=== PATIENT | male | born 1970 | race Caucasian/White ===

== ENCOUNTER 2017-12-19 10:31 | Inpatient (IN) ==
[~2017-12-19 10:31] MED LIST: LIDOCAINE 2% 5 ML VIAL ONE; ONDANSETRON 4 MG/2 ML VIAL ONE; PROPOFOL 200 MG/20 ML VIAL IV ONE; SUCCINYLCHOLINE 200 MG/10 ML VIAL ONE
[2017-12-19] MEDS ORDERED: INDOMETHACIN SUPP 50 MG SUPP RECTAL ONE (10:54)
[2017-12-19] MEDS ORDERED: LACTATED RINGERS 1,000 ML IV SCH (11:00)
[2017-12-19] MEDS ORDERED: ONDANSETRON 4 MG/2 ML VIAL IV ONE (12:12)
[2017-12-19] MEDS ORDERED: MEPERIDINE 25 MG/1 ML VIAL IV ONE (12:55)
[2017-12-19] MEDS ORDERED: MEPERIDINE 50 MG/1 ML VIAL ONE (12:59)
[2017-12-19] MEDS ORDERED: MORPHINE 4 MG/1 ML VIAL IV PRN (13:40)
[2017-12-19] MEDS: SODIUM CHLORIDE 0.45% 1,000 ML IV SCH ×2 (14:21→23:10)
[2017-12-19] MEDS ORDERED: cefTRIAXone 1,000 MG in SYRINGE 1 EACH IV SCH (16:00)
[2017-12-19] MEDS ORDERED: NALOXONE 0.4 MG/ML VIAL IV PRN ×2 (16:27→16:33)
[2017-12-19] MEDS ORDERED: MEPERIDINE PCA 300 MG/30 ML SYRINGE IV SCH (16:30)
[2017-12-19] MEDS ORDERED: HYDROmorphone PCA 30 MG/30 ML SYRINGE IV SCH (17:00)
[2017-12-19] MEDS: ONDANSETRON 4 MG/2 ML VIAL IV PRN ×2 (17:10→21:36)
[2017-12-19] MEDS: MEPERIDINE PCA 300 MG/30 ML SYRINGE IV SCH (18:27)
[2017-12-20] MEDS: ONDANSETRON 4 MG/2 ML VIAL IV PRN ×3 (01:36→22:09)
[2017-12-20] MEDS ORDERED: PROMETHAZINE 25 MG/1 ML VIAL IM PRN (03:21)
[2017-12-20] MEDS: SODIUM CHLORIDE 0.45% 1,000 ML IV SCH ×3 (06:01→23:40)
[2017-12-20 06:48] LABS: Basophils % 0.2 % (0.0-0.8); Eosinophils % 0.1 % (0.00-10.9); Hematocrit 50.5 VOL% (42.0-52.0); Hemoglobin 16.8 GM/DL (14.0-18.0); Immature Granulocytes % 0.8 %; Immature Granulocytes Absolute 0.14 #; Lymphocytes # 0.5 10*3/uL (1.4-4.0); Lymphocytes % 2.7 % (21.2-54.2); Mean Corpuscular HGB Conc 33.3 GM/DL (32-36); Mean Corpuscular Hemoglobin 28 PG (27-34); Mean Corpuscular Volume 84.9 FL (87-102); Mean Platelet Volume 8.6 FL (9.6-12.0); Monocytes # 0.5 10*3/uL (0.11-0.8); Monocytes % 2.9 % (1.7-12.7); Neutrophils # 16.6 10*3/uL (1.4-7.4); Neutrophils % 93.3 % (38.7-73.9); Platelet Count 695 T/CUMM (130-400); Red Blood Count 5.95 MC/CUMM (3.8-5.5); Red Cell Distribution Width 13.2 % (9.3-17.3); White Blood Count 17.7 T/CUMM (4-12)
[2017-12-20 07:12] LABS: Band Neutrophils 3 % (0-10); Hypochromasia 1+; Lymphocytes 1 % (20-55); Platelet Estimate Increased; Segmented Neutrophils 93 % (50-85); Total Cells Counted 100
[2017-12-20 07:15] LABS: Albumin 3.3 G/DL (3.4-5.0); Bilirubin,Total 1.3 MG/DL (0.2-1.0); Calcium 9.4 MG/DL (8.5-10.1); Osmolality,Calculated 269.7 MOS/KG (273-304); Potassium 4.6 MMOL/L (3.5-5.1); Total Protein 7.9 G/DL (6.4-8.3)
[2017-12-20] MEDS ORDERED: SODIUM CHLORIDE 0.9% 1,000 ML IV ONE (10:42)
[2017-12-20] MEDS ORDERED: PIPERACILLIN/TAZOBACTAM 3,375 MG in SODIUM CHLORIDE 0.9% 100 ML IV SCH (11:00)
[2017-12-20 14:09] LABS: Basophils % 0.2 % (0.0-0.8); Hematocrit 47.5 VOL% (42.0-52.0); Hemoglobin 16.1 GM/DL (14.0-18.0); Immature Granulocytes % 0.5 %; Immature Granulocytes Absolute 0.09 #; Lymphocytes # 0.8 10*3/uL (1.4-4.0); Lymphocytes % 4.1 % (21.2-54.2); Mean Corpuscular HGB Conc 33.9 GM/DL (32-36); Mean Corpuscular Hemoglobin 29 PG (27-34); Mean Corpuscular Volume 84.7 FL (87-102); Mean Platelet Volume 8.5 FL (9.6-12.0); Monocytes # 0.8 10*3/uL (0.11-0.8); Monocytes % 4.2 % (1.7-12.7); Neutrophils # 17.1 10*3/uL (1.4-7.4); Platelet Count 613 T/CUMM (130-400); Red Blood Count 5.61 MC/CUMM (3.8-5.5); Red Cell Distribution Width 13.2 % (9.3-17.3); White Blood Count 18.8 T/CUMM (4-12)
[2017-12-20 14:34] LABS: Lymphocytes 6 % (20-55); Platelet Estimate Adequate; Segmented Neutrophils 91 % (50-85); Total Cells Counted 100
[2017-12-20] MEDS: MEROPENEM 1,000 MG in SODIUM CHLORIDE 0.9% 100 ML IV SCH (15:09)
[2017-12-20] MEDS ORDERED: GLUCAGON 1 MG VIAL IM PRN (16:07)
[2017-12-20] MEDS ORDERED: DEXTROSE 50% 25 GM/50 ML VIAL IV PRN (16:07)
[2017-12-20] MEDS: INSULIN LISPRO 100 UNIT/ML SUBCUT SCH ×2 (16:16→20:30)
[2017-12-20] MEDS: MEPERIDINE PCA 300 MG/30 ML SYRINGE IV SCH (17:57)
[2017-12-20] MEDS: MEPERIDINE 50 MG/1 ML VIAL IV PRN (22:08)
[2017-12-21] MEDS: MEROPENEM 1,000 MG in SODIUM CHLORIDE 0.9% 100 ML IV SCH ×3 (00:02→14:01)
[2017-12-21] MEDS: ONDANSETRON 4 MG/2 ML VIAL IV PRN ×4 (01:51→17:54)
[2017-12-21] MEDS: MEPERIDINE 50 MG/1 ML VIAL IV PRN ×7 (01:51→20:40)
[2017-12-21 07:23] LABS: Basophils # 0.1 10*3/uL (0.0-0.2); Basophils % 0.2 % (0.0-0.8); Eosinophils % 0.1 % (0.00-10.9); Immature Granulocytes % 0.8 %; Immature Granulocytes Absolute 0.18 #; Lymphocytes # 1.2 10*3/uL (1.4-4.0); Lymphocytes % 5.3 % (21.2-54.2); Mean Corpuscular HGB Conc 34.8 GM/DL (32-36); Mean Corpuscular Hemoglobin 29 PG (27-34); Mean Platelet Volume 8.6 FL (9.6-12.0); Monocytes # 1.5 10*3/uL (0.11-0.8); Monocytes % 6.6 % (1.7-12.7); Platelet Count 494 T/CUMM (130-400); Red Blood Count 4.82 MC/CUMM (3.8-5.5); Red Cell Distribution Width 13.6 % (9.3-17.3); White Blood Count 21.9 T/CUMM (4-12)
[2017-12-21 07:28] LABS: Hemoglobin 13.9 GM/DL (14.0-18.0)
[2017-12-21] MEDS: SODIUM CHLORIDE 0.45% 1,000 ML IV SCH ×2 (07:28→14:04)
[2017-12-21 07:41] LABS: Hypochromasia 1+; Lymphocytes 4 % (20-55); Platelet Estimate Adequate; Segmented Neutrophils 89 % (50-85); Total Cells Counted 100
[2017-12-21] MEDS: INSULIN LISPRO 100 UNIT/ML SUBCUT SCH ×4 (08:15→20:51)
[2017-12-21] MEDS: PANTOPRAZOLE 40 MG VIAL IV SCH ×2 (11:13→20:52)
[2017-12-21] MEDS: METOPROLOL TARTRATE 50 MG TABLET PO SCH ×2 (16:13→20:52)
[2017-12-22] MEDS: SODIUM CHLORIDE 0.45% 1,000 ML IV SCH ×5 (00:36→15:55)
[2017-12-22] MEDS: MEROPENEM 1,000 MG in SODIUM CHLORIDE 0.9% 100 ML IV SCH ×4 (00:37→22:26)
[2017-12-22] MEDS: MEPERIDINE 50 MG/1 ML VIAL IV PRN ×6 (00:37→22:30)
[2017-12-22] MEDS: ONDANSETRON 4 MG/2 ML VIAL IV PRN ×5 (00:38→19:28)
[2017-12-22 07:47] LABS: Basophils # 0.1 10*3/uL (0.0-0.2); Basophils % 0.4 % (0.0-0.8); Eosinophils # 0.2 10*3/uL (0.0-0.87); Eosinophils % 1.2 % (0.00-10.9); Hematocrit 36.9 VOL% (42.0-52.0); Hemoglobin 12.4 GM/DL (14.0-18.0); Immature Granulocytes % 0.7 %; Immature Granulocytes Absolute 0.11 #; Lymphocytes # 0.8 10*3/uL (1.4-4.0); Lymphocytes % 5.1 % (21.2-54.2); Mean Corpuscular HGB Conc 33.6 GM/DL (32-36); Mean Corpuscular Hemoglobin 29 PG (27-34); Mean Corpuscular Volume 86.2 FL (87-102); Mean Platelet Volume 8.9 FL (9.6-12.0); Monocytes # 1.2 10*3/uL (0.11-0.8); Monocytes % 7.7 % (1.7-12.7); Neutrophils # 13.3 10*3/uL (1.4-7.4); Neutrophils % 84.9 % (38.7-73.9); Platelet Count 433 T/CUMM (130-400); Red Blood Count 4.28 MC/CUMM (3.8-5.5); Red Cell Distribution Width 13.8 % (9.3-17.3); White Blood Count 15.6 T/CUMM (4-12)
[2017-12-22 08:20] LABS: Albumin 2.4 G/DL (3.4-5.0); Bilirubin,Total 1.1 MG/DL (0.2-1.0); Calcium 8.3 MG/DL (8.5-10.1); Osmolality,Calculated 265.2 MOS/KG (273-304); Potassium 4.1 MMOL/L (3.5-5.1); Total Protein 6.5 G/DL (6.4-8.3)
[2017-12-22] MEDS: INSULIN LISPRO 100 UNIT/ML SUBCUT SCH ×4 (08:41→21:09)
[2017-12-22] MEDS: METOPROLOL TARTRATE 50 MG TABLET PO SCH ×2 (08:41→21:11)
[2017-12-22] MEDS: PANTOPRAZOLE 40 MG VIAL IV SCH ×2 (08:42→21:11)
[2017-12-22] MEDS: POLYETHYLENE GLYCOL POWDER 17 GM PACK PO SCH (10:39)
[2017-12-23] MEDS: SODIUM CHLORIDE 0.45% 1,000 ML IV SCH ×3 (00:04→23:35)
[2017-12-23] MEDS: MEPERIDINE 50 MG/1 ML VIAL IV PRN ×4 (02:06→20:18)
[2017-12-23] MEDS: ONDANSETRON 4 MG/2 ML VIAL IV PRN ×5 (02:07→20:18)
[2017-12-23] MEDS: MEROPENEM 1,000 MG in SODIUM CHLORIDE 0.9% 100 ML IV SCH ×3 (06:11→23:18)
[2017-12-23] MEDS: PANTOPRAZOLE 40 MG VIAL IV SCH ×2 (08:31→20:19)
[2017-12-23] MEDS: POLYETHYLENE GLYCOL POWDER 17 GM PACK PO SCH ×2 (08:31→08:33)
[2017-12-23] MEDS: INSULIN LISPRO 100 UNIT/ML SUBCUT SCH ×4 (08:31→23:20)
[2017-12-23] MEDS: METOPROLOL TARTRATE 50 MG TABLET PO SCH ×2 (08:31→20:19)
[2017-12-24] MEDS: ONDANSETRON 4 MG/2 ML VIAL IV PRN ×4 (03:54→21:57)
[2017-12-24] MEDS: MEPERIDINE 50 MG/1 ML VIAL IV PRN ×4 (03:58→17:39)
[2017-12-24] MEDS: MEROPENEM 1,000 MG in SODIUM CHLORIDE 0.9% 100 ML IV SCH ×3 (06:55→22:28)
[2017-12-24] MEDS: SODIUM CHLORIDE 0.45% 1,000 ML IV SCH ×4 (07:56→21:52)
[2017-12-24] MEDS: INSULIN LISPRO 100 UNIT/ML SUBCUT SCH ×4 (09:28→22:10)
[2017-12-24] MEDS: METOPROLOL TARTRATE 50 MG TABLET PO SCH ×2 (09:28→21:54)
[2017-12-24] MEDS: POLYETHYLENE GLYCOL POWDER 17 GM PACK PO SCH (09:29)
[2017-12-24] MEDS: PANTOPRAZOLE 40 MG VIAL IV SCH ×2 (09:29→21:54)
[2017-12-25] MEDS: MEPERIDINE 50 MG/1 ML VIAL IV PRN ×3 (00:06→10:51)
[2017-12-25] MEDS: SODIUM CHLORIDE 0.45% 1,000 ML IV SCH ×3 (05:36→20:34)
[2017-12-25] MEDS: ONDANSETRON 4 MG/2 ML VIAL IV PRN ×4 (05:41→20:34)
[2017-12-25 06:24] LABS: Basophils # 0.1 10*3/uL (0.0-0.2); Basophils % 0.4 % (0.0-0.8); Eosinophils # 0.1 10*3/uL (0.0-0.87); Eosinophils % 0.8 % (0.00-10.9); Hematocrit 36.4 VOL% (42.0-52.0); Hemoglobin 12.4 GM/DL (14.0-18.0); Immature Granulocytes % 0.8 %; Immature Granulocytes Absolute 0.11 #; Lymphocytes % 14.3 % (21.2-54.2); Mean Corpuscular HGB Conc 34.1 GM/DL (32-36); Mean Corpuscular Hemoglobin 28 PG (27-34); Mean Corpuscular Volume 83.5 FL (87-102); Mean Platelet Volume 9.1 FL (9.6-12.0); Monocytes # 1.5 10*3/uL (0.11-0.8); Monocytes % 10.6 % (1.7-12.7); Neutrophils # 10.1 10*3/uL (1.4-7.4); Neutrophils % 73.1 % (38.7-73.9); Platelet Count 412 T/CUMM (130-400); Red Blood Count 4.36 MC/CUMM (3.8-5.5); Red Cell Distribution Width 13.5 % (9.3-17.3); White Blood Count 13.8 T/CUMM (4-12)
[2017-12-25 06:28] LABS: Calcium 8.8 MG/DL (8.5-10.1); Osmolality,Calculated 268.1 MOS/KG (273-304); Potassium 3.7 MMOL/L (3.5-5.1)
[2017-12-25] MEDS: MEROPENEM 1,000 MG in SODIUM CHLORIDE 0.9% 100 ML IV SCH ×3 (06:31→23:19)
[2017-12-25] MEDS: INSULIN LISPRO 100 UNIT/ML SUBCUT SCH ×4 (08:44→23:20)
[2017-12-25] MEDS: PANTOPRAZOLE 40 MG VIAL IV SCH ×2 (09:20→20:33)
[2017-12-25] MEDS: POLYETHYLENE GLYCOL POWDER 17 GM PACK PO SCH (09:20)
[2017-12-25] MEDS: METOPROLOL TARTRATE 50 MG TABLET PO SCH ×2 (09:20→20:33)
[2017-12-25] MEDS ORDERED: HYDROmorphone 2 MG/1 ML VIAL IV PRN (14:37)
[2017-12-25] MEDS: ALPRAZolam 0.5 MG TABLET PO PRN ×2 (14:54→23:25)
[2017-12-26 05:21] LABS: Hematocrit 38.3 VOL% (42.0-52.0); Hemoglobin 12.7 GM/DL (14.0-18.0); Mean Corpuscular HGB Conc 33.2 GM/DL (32-36); Mean Corpuscular Hemoglobin 29 PG (27-34); Mean Corpuscular Volume 85.9 FL (87-102); Platelet Count 452 T/CUMM (130-400); Red Blood Count 4.46 MC/CUMM (3.8-5.5); Red Cell Distribution Width 13.5 % (9.3-17.3); White Blood Count 12.7 T/CUMM (4-12)
[2017-12-26 05:22] LABS: Basophils # 0.1 10*3/uL (0.0-0.2); Basophils % 0.5 % (0.0-0.8); Eosinophils # 0.2 10*3/uL (0.0-0.87); Eosinophils % 1.4 % (0.00-10.9); Immature Granulocytes % 1.1 %; Immature Granulocytes Absolute 0.14 #; Lymphocytes # 2.2 10*3/uL (1.4-4.0); Lymphocytes % 17.3 % (21.2-54.2); Monocytes # 1.3 10*3/uL (0.11-0.8); Monocytes % 10.5 % (1.7-12.7); Neutrophils # 8.8 10*3/uL (1.4-7.4); Neutrophils % 69.2 % (38.7-73.9)
[2017-12-26 05:43] LABS: % Iron Saturation 10.9 % (18-50); Albumin 2.6 G/DL (3.4-5.0); Bilirubin,Total 0.9 MG/DL (0.2-1.0); Calcium 8.9 MG/DL (8.5-10.1); Osmolality,Calculated 273.8 MOS/KG (273-304); Potassium 3.9 MMOL/L (3.5-5.1); Total Protein 6.7 G/DL (6.4-8.3)
[2017-12-26] MEDS: MEROPENEM 1,000 MG in SODIUM CHLORIDE 0.9% 100 ML IV SCH ×2 (06:11→15:52)
[2017-12-26] MEDS: SODIUM CHLORIDE 0.45% 1,000 ML IV SCH ×3 (06:11→18:21)
[2017-12-26] MEDS: INSULIN LISPRO 100 UNIT/ML SUBCUT SCH ×4 (08:46→20:54)
[2017-12-26] MEDS: ONDANSETRON 4 MG/2 ML VIAL IV PRN ×2 (08:48→16:22)
[2017-12-26] MEDS: PANTOPRAZOLE 40 MG VIAL IV SCH ×2 (08:49→20:51)
[2017-12-26] MEDS: METOPROLOL TARTRATE 50 MG TABLET PO SCH ×2 (08:49→20:52)
[2017-12-26] MEDS: ALPRAZolam 0.5 MG TABLET PO PRN ×2 (11:55→23:59)
[2017-12-26] MEDS: POLYETHYLENE GLYCOL POWDER 17 GM PACK PO SCH (14:08)
[2017-12-26] MEDS: FERROUS SULFATE 325 MG TABLET PO SCH ×3 (14:13→20:51)
[2017-12-27] MEDS: MEROPENEM 1,000 MG in SODIUM CHLORIDE 0.9% 100 ML IV SCH ×2 (00:32→06:30)
[2017-12-27] MEDS: SODIUM CHLORIDE 0.45% 1,000 ML IV SCH ×2 (06:30→15:22)
[2017-12-27] MEDS: INSULIN LISPRO 100 UNIT/ML SUBCUT SCH ×2 (09:13→13:17)
[2017-12-27] MEDS: FERROUS SULFATE 325 MG TABLET PO SCH (09:20)
[2017-12-27] MEDS: POLYETHYLENE GLYCOL POWDER 17 GM PACK PO SCH (09:20)
[2017-12-27] MEDS: PANTOPRAZOLE 40 MG VIAL IV SCH (09:20)
[2017-12-27] MEDS: METOPROLOL TARTRATE 50 MG TABLET PO SCH (09:20)
[2017-12-27] MEDS: ONDANSETRON 4 MG/2 ML VIAL IV PRN (09:20)
[2017-12-27 13:19] VITALS: BP 110/74
== END 2017-12-27 15:33 | disposition home or self-care (01) | DRG 871 ==
LOC: N.5E 10:31 → N.GILAB 10:31
PROVIDERS: ADMIT Internal Medicine Gastroenterology; ATTEND Internal Medicine Gastroenterology

== ENCOUNTER 2017-12-30 22:35 | Inpatient (IN) ==
[2017-12-30] MEDS ORDERED: ONDANSETRON 4 MG/2 ML VIAL IV STA (23:12)
[2017-12-31 00:06] LABS: Basophils # 0.1 10*3/uL (0.0-0.2); Basophils % 0.6 % (0.0-0.8); Eosinophils # 0.2 10*3/uL (0.0-0.87); Eosinophils % 1.4 % (0.00-10.9); Hematocrit 42.5 VOL% (42.0-52.0); Hemoglobin 14.3 GM/DL (14.0-18.0); Immature Granulocytes % 0.7 %; Immature Granulocytes Absolute 0.09 #; Lymphocytes # 3.9 10*3/uL (1.4-4.0); Lymphocytes % 29.1 % (21.2-54.2); Mean Corpuscular HGB Conc 33.6 GM/DL (32-36); Mean Corpuscular Hemoglobin 28 PG (27-34); Mean Corpuscular Volume 84.5 FL (87-102); Mean Platelet Volume 8.6 FL (9.6-12.0); Monocytes # 1.1 10*3/uL (0.11-0.8); Monocytes % 7.8 % (1.7-12.7); Neutrophils # 8.1 10*3/uL (1.4-7.4); Neutrophils % 60.4 % (38.7-73.9); Platelet Count 544 T/CUMM (130-400); Red Blood Count 5.03 MC/CUMM (3.8-5.5); Red Cell Distribution Width 13.8 % (9.3-17.3); White Blood Count 13.4 T/CUMM (4-12)
[2017-12-31 00:16] LABS: PT Patient Result 10.4 SECS; Partial Thromboplastin Time 31.3 SECS (0-40)
[2017-12-31 00:22] LABS: Lactic Acid 1.6 MMOL/L (0.4-2.0)
[2017-12-31 00:24] LABS: Alanine Aminotransferase 30 U/L (16-61); Albumin 3.6 G/DL (3.4-5.0); Alkaline Phosphatase 138 U/L (45-117); Amylase 59 U/L (25-115); Aspartate Amino Transferase 30 U/L (0-37); Blood Urea Nitrogen 11 MG/DL (7-18); Calcium 10.2 MG/DL (8.5-10.1); Glucose 184 MG/DL (74-106); Osmolality,Calculated 269.4 MOS/KG (273-304); Potassium 3.8 MMOL/L (3.5-5.1); Sodium 133 MMOL/L (136-145); Total Protein 8.2 G/DL (6.4-8.3); Troponin I < 0.015 NG/ML (0.00-0.045)
[2017-12-31] MEDS ORDERED: cefTRIAXone 1,000 MG in SODIUM CHLORIDE 0.9% 100 ML IV STA (00:53)
[2017-12-31] MEDS ORDERED: metroNIDAZOLE INJ 500 MG in PREMIX 1 EACH IV STA (00:53)
[2017-12-31] MEDS ORDERED: SODIUM CHLORIDE 0.9% 1,000 ML IV STA (01:48)
[2017-12-31] MEDS ORDERED: MORPHINE 4 MG/1 ML VIAL ONE (01:51)
[2017-12-31] MEDS ORDERED: cefTRIAXone 1,000 MG VIAL ONE (01:52)
[2017-12-31] MEDS ORDERED: ONDANSETRON 4 MG/2 ML VIAL IV STA (02:20)
[2017-12-31] MEDS ORDERED: MORPHINE 4 MG/1 ML VIAL IV STA (02:20)
[2017-12-31] MEDS ORDERED: ACETAMINOPHEN 325 MG TABLET PO PRN (04:02)
[2017-12-31] MEDS ORDERED: MORPHINE 4 MG/1 ML VIAL IV PRN (04:02)
[2017-12-31] MEDS ORDERED: DEXTROSE 5% NACL 0.45% 1,000 ML IV SCH (04:30)
[2017-12-31] MEDS ORDERED: GLUCAGON 1 MG VIAL IM PRN (05:29)
[2017-12-31] MEDS ORDERED: DEXTROSE 50% 25 GM/50 ML VIAL IV PRN (05:29)
[2017-12-31] MEDS: SODIUM CHLORIDE 0.9% 1,000 ML IV SCH ×3 (05:49→20:08)
[2017-12-31] MEDS: MORPHINE 4 MG/1 ML VIAL IV PRN ×2 (05:56→09:07)
[2017-12-31] MEDS: ONDANSETRON 4 MG/2 ML VIAL IV PRN ×4 (06:08→21:43)
[2017-12-31] MEDS: CIPROFLOXACIN INJ 400 MG in PREMIX 1 EACH IV SCH ×2 (06:11→17:54)
[2017-12-31] MEDS: INSULIN LISPRO 100 UNIT/ML SUBCUT SCH ×3 (07:58→18:32)
[2017-12-31] MEDS: metroNIDAZOLE 500 MG TABLET PO SCH ×3 (10:15→21:37)
[2017-12-31] MEDS: PANTOPRAZOLE 40 MG TABLET PO SCH (10:15)
[2017-12-31] MEDS: CIPROFLOXACIN 500 MG TABLET PO SCH ×2 (10:15→21:37)
[2017-12-31] MEDS: metroNIDAZOLE INJ 500 MG in PREMIX 1 EACH IV SCH ×2 (10:48→21:37)
[2017-12-31] MEDS: HYDROmorphone 2 MG/1 ML VIAL IV PRN ×2 (11:23→18:15)
[2017-12-31] MEDS: ENOXAPARIN 40 MG/0.4 ML SYRINGE SUBCUT SCH (11:25)
[2017-12-31] MEDS ORDERED: POLYETHYLENE GLYCOL POWDER 17 GM PACK PO PRN (13:45)
[2018-01-01] MEDS: INSULIN LISPRO 100 UNIT/ML SUBCUT SCH ×5 (00:30→23:35)
[2018-01-01] MEDS: SODIUM CHLORIDE 0.9% 1,000 ML IV SCH ×4 (03:29→21:15)
[2018-01-01] MEDS: HYDROmorphone 2 MG/1 ML VIAL IV PRN ×3 (03:29→20:49)
[2018-01-01] MEDS: ONDANSETRON 4 MG/2 ML VIAL IV PRN ×4 (03:37→20:46)
[2018-01-01] MEDS: metroNIDAZOLE INJ 500 MG in PREMIX 1 EACH IV SCH (03:40)
[2018-01-01 05:59] LABS: Basophils # 0.1 10*3/uL (0.0-0.2); Basophils % 0.6 % (0.0-0.8); Eosinophils # 0.3 10*3/uL (0.0-0.87); Eosinophils % 2.5 % (0.00-10.9); Hematocrit 38.7 VOL% (42.0-52.0); Hemoglobin 13.1 GM/DL (14.0-18.0); Immature Granulocytes % 0.6 %; Immature Granulocytes Absolute 0.07 #; Lymphocytes # 2.7 10*3/uL (1.4-4.0); Lymphocytes % 23.8 % (21.2-54.2); Mean Corpuscular HGB Conc 33.9 GM/DL (32-36); Mean Corpuscular Hemoglobin 28 PG (27-34); Mean Corpuscular Volume 83.8 FL (87-102); Mean Platelet Volume 8.9 FL (9.6-12.0); Monocytes # 0.9 10*3/uL (0.11-0.8); Monocytes % 8.1 % (1.7-12.7); Neutrophils # 7.2 10*3/uL (1.4-7.4); Neutrophils % 64.4 % (38.7-73.9); Platelet Count 479 T/CUMM (130-400); Red Blood Count 4.62 MC/CUMM (3.8-5.5); Red Cell Distribution Width 14.1 % (9.3-17.3); White Blood Count 11.1 T/CUMM (4-12)
[2018-01-01] MEDS: CIPROFLOXACIN INJ 400 MG in PREMIX 1 EACH IV SCH (06:37)
[2018-01-01 06:52] LABS: Albumin 3.2 G/DL (3.4-5.0); Bilirubin,Total 0.4 MG/DL (0.2-1.0); Calcium 9.2 MG/DL (8.5-10.1); Potassium 4.2 MMOL/L (3.5-5.1); Risk Ratio 3.18; Total Protein 7.4 G/DL (6.4-8.3); VLDL CHOLESTEROL 25.8 MG/DL
[2018-01-01] MEDS: CIPROFLOXACIN 500 MG TABLET PO SCH ×2 (09:18→21:30)
[2018-01-01] MEDS: PANTOPRAZOLE 40 MG TABLET PO SCH (09:18)
[2018-01-01] MEDS: ENOXAPARIN 40 MG/0.4 ML SYRINGE SUBCUT SCH (09:19)
[2018-01-01] MEDS: metroNIDAZOLE 500 MG TABLET PO SCH ×3 (09:31→21:31)
[2018-01-02] MEDS: SODIUM CHLORIDE 0.9% 1,000 ML IV SCH ×3 (05:24→20:49)
[2018-01-02] MEDS: INSULIN LISPRO 100 UNIT/ML SUBCUT SCH ×3 (06:31→18:54)
[2018-01-02] MEDS: ONDANSETRON 4 MG/2 ML VIAL IV PRN ×4 (08:40→22:26)
[2018-01-02] MEDS: CIPROFLOXACIN 500 MG TABLET PO SCH (08:43)
[2018-01-02] MEDS: metroNIDAZOLE 500 MG TABLET PO SCH (08:43)
[2018-01-02] MEDS: ENOXAPARIN 40 MG/0.4 ML SYRINGE SUBCUT SCH (08:43)
[2018-01-02] MEDS: PANTOPRAZOLE 40 MG TABLET PO SCH (08:43)
[2018-01-02] MEDS: metroNIDAZOLE INJ 500 MG in PREMIX 1 EACH IV SCH ×2 (12:06→20:44)
[2018-01-02] MEDS: HYDROmorphone 2 MG/1 ML VIAL IV PRN ×2 (12:07→17:48)
[2018-01-02] MEDS: CIPROFLOXACIN INJ 400 MG in PREMIX 1 EACH IV SCH (13:38)
[2018-01-03] MEDS: INSULIN LISPRO 100 UNIT/ML SUBCUT SCH ×3 (00:37→11:21)
[2018-01-03] MEDS: CIPROFLOXACIN INJ 400 MG in PREMIX 1 EACH IV SCH (01:56)
[2018-01-03] MEDS ORDERED: HYDROmorphone 2 MG/1 ML VIAL IV PRN (02:01)
[2018-01-03] MEDS: SODIUM CHLORIDE 0.9% 1,000 ML IV SCH ×2 (04:16→12:38)
[2018-01-03] MEDS: metroNIDAZOLE INJ 500 MG in PREMIX 1 EACH IV SCH ×2 (04:55→11:15)
[2018-01-03] MEDS: ONDANSETRON 4 MG/2 ML VIAL IV PRN ×2 (08:45→12:42)
[2018-01-03] MEDS: ENOXAPARIN 40 MG/0.4 ML SYRINGE SUBCUT SCH (09:20)
[2018-01-03] MEDS: PANTOPRAZOLE 40 MG TABLET PO SCH (09:20)
[2018-01-03 09:41] LABS: Basophils # 0.1 10*3/uL (0.0-0.2); Basophils % 0.7 % (0.0-0.8); Eosinophils # 0.3 10*3/uL (0.0-0.87); Eosinophils % 2.9 % (0.00-10.9); Hematocrit 37.3 VOL% (42.0-52.0); Hemoglobin 12.4 GM/DL (14.0-18.0); Immature Granulocytes % 0.6 %; Immature Granulocytes Absolute 0.05 #; Lymphocytes # 1.9 10*3/uL (1.4-4.0); Mean Corpuscular HGB Conc 33.2 GM/DL (32-36); Mean Corpuscular Hemoglobin 28 PG (27-34); Mean Corpuscular Volume 83.6 FL (87-102); Mean Platelet Volume 8.9 FL (9.6-12.0); Monocytes # 0.7 10*3/uL (0.11-0.8); Monocytes % 7.6 % (1.7-12.7); Neutrophils # 5.8 10*3/uL (1.4-7.4); Neutrophils % 66.2 % (38.7-73.9); Platelet Count 433 T/CUMM (130-400); Red Blood Count 4.46 MC/CUMM (3.8-5.5); Red Cell Distribution Width 13.9 % (9.3-17.3); White Blood Count 8.8 T/CUMM (4-12)
[2018-01-03 10:12] LABS: Bilirubin,Direct 0.2 MG/DL (0.0-0.20); Bilirubin,Indirect 0.3 MG/DL (0.0-1.0); Bilirubin,Total 0.5 MG/DL (0.2-1.0); Total Protein 6.8 G/DL (6.4-8.3)
[2018-01-03 13:02] VITALS: BP 141/82
== END 2018-01-03 14:03 | disposition home or self-care (01) | DRG 439 ==
LOC: EDBD → EDUNIT# → N.ED 22:35 → N.EDINP 22:35 → SUATTDRO 12-31 03:58 → N.3E 12-31 05:22 → SUATTDRO 01-02 14:03
PROVIDERS: ADMIT Hospitalist; ATTEND Internal Medicine

== ENCOUNTER 2018-02-15 06:50 | Observation (INO) ==
[2018-02-15] MEDS: LACTATED RINGERS 1,000 ML IV SCH (07:20)
[2018-02-15] MEDS ORDERED: INDOMETHACIN SUPP 50 MG SUPP RECTAL ONE (07:26)
[2018-02-15] MEDS ORDERED: DIAZEPAM 5 MG TABLET PO ONE (07:37)
[2018-02-15] MEDS ORDERED: FAMOTIDINE 20 MG TABLET PO ONE (07:38)
[2018-02-15 07:40] LABS: Basophils # 0.1 10*3/uL (0.0-0.2); Basophils % 0.8 % (0.0-0.8); Eosinophils # 0.2 10*3/uL (0.0-0.87); Eosinophils % 2.3 % (0.00-10.9); Hematocrit 40.4 VOL% (42.0-52.0); Hemoglobin 13.2 GM/DL (14.0-18.0); Immature Granulocytes % 0.5 %; Immature Granulocytes Absolute 0.05 #; Lymphocytes # 2.5 10*3/uL (1.4-4.0); Mean Corpuscular HGB Conc 32.7 GM/DL (32-36); Mean Corpuscular Hemoglobin 29 PG (27-34); Mean Corpuscular Volume 87.4 FL (87-102); Monocytes # 0.9 10*3/uL (0.11-0.8); Neutrophils # 6.3 10*3/uL (1.4-7.4); Neutrophils % 62.4 % (38.7-73.9); Platelet Count 381 T/CUMM (130-400); Red Blood Count 4.62 MC/CUMM (3.8-5.5); Red Cell Distribution Width 15.5 % (9.3-17.3)
[2018-02-15 07:50] LABS: PT Patient Result 10.3 SECS
[2018-02-15] MEDS ORDERED: ROCURONIUM 100 MG/10 ML VIAL IV ONE (09:00)
[2018-02-15] MEDS ORDERED: PROPOFOL 200 MG/20 ML VIAL IV ONE (09:00)
[2018-02-15] MEDS ORDERED: SUCCINYLCHOLINE 200 MG/10 ML VIAL ONE (09:00)
[2018-02-15] MEDS ORDERED: ONDANSETRON 4 MG/2 ML VIAL ONE (09:00)
[2018-02-15] MEDS ORDERED: LIDOCAINE 100 MG/5 ML SYRINGE ONE (09:00)
[2018-02-15] MEDS ORDERED: MIDAZOLAM 2 MG/2 ML VIAL ONE (09:05)
[2018-02-15] MEDS ORDERED: fentaNYL 100 MCG/2 ML VIAL ONE (09:05)
[2018-02-15] MEDS ORDERED: ONDANSETRON 4 MG/2 ML VIAL IV PRN (11:31)
[2018-02-15] MEDS ORDERED: DIAZEPAM 5 MG TABLET PO PRN (11:40)
[2018-02-15] MEDS ORDERED: DEXTROSE 50% 25 GM/50 ML VIAL IV PRN (11:45)
[2018-02-15] MEDS ORDERED: GLUCAGON 1 MG VIAL IM PRN (11:45)
[2018-02-15] MEDS ORDERED: SEVOFLURANE 1 UNIT/15 MINUTE INH ONE (14:07)
[2018-02-15] MEDS: busPIRone 15 MG TABLET PO SCH ×2 (15:01→21:16)
[2018-02-15] MEDS: SODIUM CHLORIDE 0.9% 1,000 ML IV SCH (15:01)
[2018-02-15] MEDS: ONDANSETRON 4 MG TABLET PO SCH ×2 (15:09→17:09)
[2018-02-16] MEDS: ONDANSETRON 4 MG TABLET PO SCH ×4 (00:04→18:40)
[2018-02-16] MEDS: SODIUM CHLORIDE 0.9% 1,000 ML IV SCH ×2 (02:51→15:45)
[2018-02-16] MEDS: POLYETHYLENE GLYCOL POWDER 17 GM PACK PO SCH (08:54)
[2018-02-16] MEDS: LISINOPRIL/HCTZ 20-25 MG TABLET PO SCH (08:54)
[2018-02-16] MEDS: busPIRone 15 MG TABLET PO SCH ×3 (08:54→21:16)
[2018-02-16] MEDS: LACTATED RINGERS 1,000 ML IV SCH (09:25)
[2018-02-17] MEDS: ONDANSETRON 4 MG TABLET PO SCH ×4 (01:01→19:30)
[2018-02-17] MEDS: traMADol 50 MG TABLET PO PRN ×3 (03:54→21:36)
[2018-02-17] MEDS: SODIUM CHLORIDE 0.9% 1,000 ML IV SCH ×2 (05:09→20:15)
[2018-02-17 05:23] LABS: Basophils % 0.6 % (0.0-0.8); Eosinophils # 0.2 10*3/uL (0.0-0.87); Eosinophils % 2.9 % (0.00-10.9); Hematocrit 42.3 VOL% (42.0-52.0); Hemoglobin 13.3 GM/DL (14.0-18.0); Immature Granulocytes % 0.3 %; Immature Granulocytes Absolute 0.02 #; Lymphocytes # 2.2 10*3/uL (1.4-4.0); Mean Corpuscular HGB Conc 31.4 GM/DL (32-36); Mean Corpuscular Hemoglobin 27 PG (27-34); Mean Corpuscular Volume 87.2 FL (87-102); Mean Platelet Volume 9.3 FL (9.6-12.0); Monocytes # 0.5 10*3/uL (0.11-0.8); Monocytes % 7.8 % (1.7-12.7); Neutrophils # 3.7 10*3/uL (1.4-7.4); Neutrophils % 55.4 % (38.7-73.9); Platelet Count 396 T/CUMM (130-400); Red Blood Count 4.85 MC/CUMM (3.8-5.5); Red Cell Distribution Width 14.9 % (9.3-17.3); White Blood Count 6.6 T/CUMM (4-12)
[2018-02-17 05:46] LABS: Albumin 3.6 G/DL (3.4-5.0); Bilirubin,Total 0.6 MG/DL (0.2-1.0); Osmolality,Calculated 278.3 MOS/KG (273-304); Potassium 3.8 MMOL/L (3.5-5.1); Total Protein 7.5 G/DL (6.4-8.3)
[2018-02-17] MEDS: POLYETHYLENE GLYCOL POWDER 17 GM PACK PO SCH (08:57)
[2018-02-17] MEDS: busPIRone 15 MG TABLET PO SCH ×3 (08:57→21:12)
[2018-02-17] MEDS: LISINOPRIL/HCTZ 20-25 MG TABLET PO SCH (09:02)
[2018-02-17] MEDS: LACTATED RINGERS 1,000 ML IV SCH (20:12)
[2018-02-17] MEDS: ONDANSETRON 4 MG/2 ML VIAL IV PRN (21:12)
[2018-02-18] MEDS: ONDANSETRON 4 MG TABLET PO SCH ×5 (00:40→18:11)
[2018-02-18] MEDS: SODIUM CHLORIDE 0.9% 1,000 ML IV SCH ×2 (07:40→21:00)
[2018-02-18] MEDS: busPIRone 15 MG TABLET PO SCH ×3 (08:13→20:19)
[2018-02-18] MEDS: LISINOPRIL/HCTZ 20-25 MG TABLET PO SCH (08:13)
[2018-02-18] MEDS: POLYETHYLENE GLYCOL POWDER 17 GM PACK PO SCH (08:13)
[2018-02-18] MEDS: traMADol 50 MG TABLET PO PRN ×2 (11:39→20:19)
[2018-02-18] MEDS: ONDANSETRON 4 MG/2 ML VIAL IV PRN (20:19)
[2018-02-19] MEDS: ONDANSETRON 4 MG TABLET PO SCH ×3 (00:49→11:39)
[2018-02-19] MEDS: LISINOPRIL/HCTZ 20-25 MG TABLET PO SCH (09:23)
[2018-02-19] MEDS: busPIRone 15 MG TABLET PO SCH (09:24)
[2018-02-19] MEDS: POLYETHYLENE GLYCOL POWDER 17 GM PACK PO SCH (09:24)
[2018-02-19] MEDS: SODIUM CHLORIDE 0.9% 1,000 ML IV SCH ×2 (09:32→11:03)
[2018-02-19 11:37] VITALS: BP 143/97
[2018-02-19] MEDS: traMADol 50 MG TABLET PO PRN (11:39)
== END 2018-02-19 14:15 | disposition home or self-care (01) ==
LOC: N.5E 06:50 → N.GILAB 06:50 → N.5E 11:31
PROVIDERS: ADMIT Internal Medicine Gastroenterology; ATTEND Internal Medicine Gastroenterology

== ENCOUNTER 2018-02-28 12:41 | Observation (INO) ==
[2018-02-28] MEDS ORDERED: SODIUM CHLORIDE 0.9% 1,000 ML IV STA (13:40)
[2018-02-28] MEDS ORDERED: HYDROmorphone 2 MG/1 ML VIAL IV STA (13:40)
[2018-02-28] MEDS ORDERED: ONDANSETRON 4 MG/2 ML VIAL IV STA (13:40)
[2018-02-28] MEDS ORDERED: HYDROmorphone 2 MG/1 ML VIAL ONE (13:41)
[2018-02-28] MEDS ORDERED: ONDANSETRON 4 MG/2 ML VIAL ONE (13:41)
[2018-02-28 13:47] LABS: Basophils # 0.1 10*3/uL (0.0-0.2); Basophils % 0.6 % (0.0-0.8); Eosinophils # 0.2 10*3/uL (0.0-0.87); Eosinophils % 2.2 % (0.00-10.9); Hematocrit 46.1 VOL% (42.0-52.0); Hemoglobin 15.1 GM/DL (14.0-18.0); Immature Granulocytes % 0.2 %; Immature Granulocytes Absolute 0.02 #; Lymphocytes # 2.8 10*3/uL (1.4-4.0); Lymphocytes % 34.1 % (21.2-54.2); Mean Corpuscular HGB Conc 32.8 GM/DL (32-36); Mean Corpuscular Hemoglobin 27 PG (27-34); Mean Corpuscular Volume 83.7 FL (87-102); Monocytes # 0.7 10*3/uL (0.11-0.8); Monocytes % 8.1 % (1.7-12.7); Neutrophils # 4.5 10*3/uL (1.4-7.4); Neutrophils % 54.8 % (38.7-73.9); Platelet Count 339 T/CUMM (130-400); Red Blood Count 5.51 MC/CUMM (3.8-5.5); Red Cell Distribution Width 14.9 % (9.3-17.3); White Blood Count 8.1 T/CUMM (4-12)
[2018-02-28 14:06] LABS: Albumin 3.9 G/DL (3.4-5.0); Bilirubin,Total 0.6 MG/DL (0.2-1.0); Osmolality,Calculated 270.1 MOS/KG (273-304); Potassium 3.9 MMOL/L (3.5-5.1); Total Protein 7.8 G/DL (6.4-8.3)
[2018-02-28] MEDS ORDERED: ACETAMINOPHEN 325 MG TABLET PO PRN (16:30)
[2018-02-28] MEDS ORDERED: traMADol 50 MG TABLET PO PRN (16:40)
[2018-02-28] MEDS ORDERED: DIAZEPAM 5 MG TABLET PO PRN (16:40)
[2018-02-28] MEDS ORDERED: POLYETHYLENE GLYCOL POWDER 17 GM PACK PO PRN (16:40)
[2018-02-28] MEDS ORDERED: GLUCAGON 1 MG VIAL IM PRN (16:41)
[2018-02-28] MEDS ORDERED: DEXTROSE 50% 25 GM/50 ML VIAL IV PRN (16:41)
[2018-02-28] MEDS: HYDROmorphone 2 MG/1 ML VIAL IV PRN (18:41)
[2018-02-28] MEDS: SODIUM CHLORIDE 0.9% 1,000 ML IV SCH (19:09)
[2018-02-28] MEDS: busPIRone 15 MG TABLET PO SCH (22:07)
[2018-02-28] MEDS: metFORMIN 500 MG TABLET PO SCH (22:07)
[2018-02-28] MEDS: INSULIN LISPRO 100 UNIT/ML SUBCUT SCH (22:24)
[2018-02-28] MEDS: ONDANSETRON 4 MG/2 ML VIAL IV PRN (22:28)
[2018-03-01] MEDS: HYDROmorphone 2 MG/1 ML VIAL IV PRN ×3 (00:06→21:27)
[2018-03-01] MEDS: SODIUM CHLORIDE 0.9% 1,000 ML IV SCH ×3 (03:50→21:18)
[2018-03-01 04:52] LABS: Basophils % 0.6 % (0.0-0.8); Eosinophils # 0.2 10*3/uL (0.0-0.87); Eosinophils % 3.2 % (0.00-10.9); Hematocrit 40.6 VOL% (42.0-52.0); Hemoglobin 13.3 GM/DL (14.0-18.0); Immature Granulocytes % 0.3 %; Immature Granulocytes Absolute 0.02 #; Lymphocytes # 2.6 10*3/uL (1.4-4.0); Lymphocytes % 40.2 % (21.2-54.2); Mean Corpuscular HGB Conc 32.8 GM/DL (32-36); Mean Corpuscular Hemoglobin 28 PG (27-34); Mean Platelet Volume 9.7 FL (9.6-12.0); Monocytes # 0.6 10*3/uL (0.11-0.8); Monocytes % 9.4 % (1.7-12.7); Neutrophils % 46.3 % (38.7-73.9); Platelet Count 269 T/CUMM (130-400); Red Blood Count 4.72 MC/CUMM (3.8-5.5); Red Cell Distribution Width 14.9 % (9.3-17.3); White Blood Count 6.5 T/CUMM (4-12)
[2018-03-01 05:16] LABS: Calcium 8.6 MG/DL (8.5-10.1); Osmolality,Calculated 276.4 MOS/KG (273-304); Potassium 4.4 MMOL/L (3.5-5.1); Risk Ratio 5.3; VLDL CHOLESTEROL 28.6 MG/DL
[2018-03-01] MEDS: INSULIN LISPRO 100 UNIT/ML SUBCUT SCH ×4 (07:20→21:32)
[2018-03-01] MEDS: LISINOPRIL/HCTZ 20-25 MG TABLET PO SCH (08:55)
[2018-03-01] MEDS: busPIRone 15 MG TABLET PO SCH ×3 (08:55→21:15)
[2018-03-01] MEDS: PANTOPRAZOLE 40 MG TABLET PO SCH (08:55)
[2018-03-01] MEDS: metFORMIN 500 MG TABLET PO SCH ×3 (08:55→21:14)
[2018-03-01] MEDS: ONDANSETRON 4 MG/2 ML VIAL IV PRN ×2 (09:13→21:30)
[2018-03-01] MEDS: IBUPROFEN 600 MG TABLET PO SCH ×2 (16:46→21:14)
[2018-03-02] MEDS: SODIUM CHLORIDE 0.9% 1,000 ML IV SCH (05:37)
[2018-03-02 06:25] LABS: Calcium 8.4 MG/DL (8.5-10.1); Potassium 4.1 MMOL/L (3.5-5.1)
[2018-03-02 06:29] LABS: Basophils % 0.6 % (0.0-0.8); Eosinophils # 0.2 10*3/uL (0.0-0.87); Eosinophils % 4.5 % (0.00-10.9); Hematocrit 39.2 VOL% (42.0-52.0); Hemoglobin 12.6 GM/DL (14.0-18.0); Immature Granulocytes % 0.2 %; Immature Granulocytes Absolute 0.01 #; Lymphocytes % 39.1 % (21.2-54.2); Mean Corpuscular HGB Conc 32.1 GM/DL (32-36); Mean Corpuscular Hemoglobin 28 PG (27-34); Mean Corpuscular Volume 85.6 FL (87-102); Mean Platelet Volume 9.9 FL (9.6-12.0); Monocytes # 0.5 10*3/uL (0.11-0.8); Neutrophils # 2.4 10*3/uL (1.4-7.4); Neutrophils % 46.6 % (38.7-73.9); Platelet Count 269 T/CUMM (130-400); Red Blood Count 4.58 MC/CUMM (3.8-5.5); Red Cell Distribution Width 14.8 % (9.3-17.3); White Blood Count 5.1 T/CUMM (4-12)
[2018-03-02] MEDS: INSULIN LISPRO 100 UNIT/ML SUBCUT SCH (08:12)
[2018-03-02 08:14] VITALS: BP 125/87
[2018-03-02] MEDS: metFORMIN 500 MG TABLET PO SCH (08:50)
[2018-03-02] MEDS: busPIRone 15 MG TABLET PO SCH (08:50)
[2018-03-02] MEDS: PANTOPRAZOLE 40 MG TABLET PO SCH (08:50)
[2018-03-02] MEDS: LISINOPRIL/HCTZ 20-25 MG TABLET PO SCH (08:51)
[2018-03-02] MEDS: IBUPROFEN 600 MG TABLET PO SCH (08:51)
[2018-03-02] MEDS: ONDANSETRON 4 MG/2 ML VIAL IV PRN (10:20)
== END 2018-03-02 11:33 | disposition home or self-care (01) ==
LOC: EDBD → EDUNIT# → N.EDINP 12:41 → N.ED 12:41 → N.2E 19:15
PROVIDERS: ADMIT Internal Medicine Infectious Disease; ATTEND Internal Medicine Infectious Disease

== ENCOUNTER 2018-03-26 15:30 | Inpatient (IN) ==
[2018-03-26] MEDS ORDERED: SODIUM CHLORIDE 0.9% 1,000 ML IV STA (16:54)
[2018-03-26] MEDS ORDERED: ONDANSETRON 4 MG/2 ML VIAL IV STA (16:54)
[2018-03-26] MEDS ORDERED: HYDROmorphone 2 MG/1 ML VIAL IV STA (16:54)
[2018-03-26] MEDS ORDERED: PANTOPRAZOLE 40 MG VIAL IV STA (16:54)
[2018-03-26 17:50] LABS: Basophils # 0.1 10*3/uL (0.0-0.2); Basophils % 0.6 % (0.0-0.8); Eosinophils # 0.2 10*3/uL (0.0-0.87); Eosinophils % 2.4 % (0.00-10.9); Hematocrit 37.1 VOL% (42.0-52.0); Hemoglobin 11.8 GM/DL (14.0-18.0); Immature Granulocytes % 0.5 %; Immature Granulocytes Absolute 0.04 #; Lymphocytes # 2.1 10*3/uL (1.4-4.0); Lymphocytes % 26.3 % (21.2-54.2); Mean Corpuscular HGB Conc 31.8 GM/DL (32-36); Mean Corpuscular Hemoglobin 27 PG (27-34); Mean Corpuscular Volume 86.3 FL (87-102); Monocytes # 0.7 10*3/uL (0.11-0.8); Monocytes % 8.5 % (1.7-12.7); Neutrophils # 4.8 10*3/uL (1.4-7.4); Neutrophils % 61.7 % (38.7-73.9); Platelet Count 403 T/CUMM (130-400); Red Cell Distribution Width 15.5 % (9.3-17.3); White Blood Count 7.8 T/CUMM (4-12)
[2018-03-26 18:12] LABS: Lactic Acid 0.8 MMOL/L (0.4-2.0)
[2018-03-26 18:13] LABS: Albumin 3.5 G/DL (3.4-5.0); Bilirubin,Total 0.5 MG/DL (0.2-1.0); Calcium 8.6 MG/DL (8.5-10.1); Osmolality,Calculated 275.5 MOS/KG (273-304); Potassium 3.6 MMOL/L (3.5-5.1)
[2018-03-26 18:28] LABS: Apearance,Urine CLEAR (Clear); Bilirubin,Urine Negative (Negative); Blood, Urine Negative (Negative); Glucose,Urine (UA) Negative (Negative); Ketones,Urine Negative (Negative); Mucus,Urine Occasional /LPF (Occasional); Nitrite,Urine Negative (Negative); Protein,Urine Negative; RBC,Urine 1 /HPF (0-4); Urine Color Yellow (Yellow); Urine Specific Gravity 1.018 (1.001-1.035); Urine Urobilinogen < 2.0 EU/DL (0.2-1.0); WBC,Urine 1 /HPF (0-6)
[2018-03-26] MEDS ORDERED: DIAZEPAM 5 MG TABLET PO PRN (19:01)
[2018-03-26] MEDS ORDERED: DEXTROSE 50% 25 GM/50 ML VIAL IV PRN (19:54)
[2018-03-26] MEDS ORDERED: GLUCAGON 1 MG VIAL IM PRN (19:54)
[2018-03-26] MEDS: HYDROmorphone 2 MG/1 ML VIAL IV PRN (21:35)
[2018-03-26] MEDS: ONDANSETRON 4 MG/2 ML VIAL IV PRN (21:35)
[2018-03-26] MEDS: busPIRone 15 MG TABLET PO SCH (21:37)
[2018-03-26] MEDS: INSULIN REGULAR 100 UNIT/ML SUBCUT SCH (21:37)
[2018-03-26] MEDS: SODIUM CHLORIDE 0.9% 1,000 ML IV SCH (21:37)
[2018-03-27] MEDS: HYDROmorphone 2 MG/1 ML VIAL IV PRN ×5 (04:25→21:00)
[2018-03-27] MEDS: ONDANSETRON 4 MG/2 ML VIAL IV PRN ×5 (04:26→20:58)
[2018-03-27] MEDS: SODIUM CHLORIDE 0.9% 1,000 ML IV SCH ×3 (05:02→21:04)
[2018-03-27 06:34] LABS: Basophils # 0.1 10*3/uL (0.0-0.2); Basophils % 1.1 % (0.0-0.8); Eosinophils # 0.2 10*3/uL (0.0-0.87); Eosinophils % 3.6 % (0.00-10.9); Hematocrit 36.5 VOL% (42.0-52.0); Hemoglobin 11.7 GM/DL (14.0-18.0); Immature Granulocytes % 0.2 %; Immature Granulocytes Absolute 0.01 #; Lymphocytes # 1.9 10*3/uL (1.4-4.0); Lymphocytes % 34.5 % (21.2-54.2); Mean Corpuscular HGB Conc 32.1 GM/DL (32-36); Mean Corpuscular Hemoglobin 28 PG (27-34); Mean Corpuscular Volume 86.3 FL (87-102); Mean Platelet Volume 8.8 FL (9.6-12.0); Monocytes # 0.6 10*3/uL (0.11-0.8); Monocytes % 10.1 % (1.7-12.7); Neutrophils # 2.8 10*3/uL (1.4-7.4); Neutrophils % 50.5 % (38.7-73.9); Platelet Count 370 T/CUMM (130-400); Red Blood Count 4.23 MC/CUMM (3.8-5.5); Red Cell Distribution Width 15.2 % (9.3-17.3); White Blood Count 5.6 T/CUMM (4-12)
[2018-03-27 06:53] LABS: Albumin 3.1 G/DL (3.4-5.0); Bilirubin,Total 0.5 MG/DL (0.2-1.0); Calcium 8.1 MG/DL (8.5-10.1); Osmolality,Calculated 277.3 MOS/KG (273-304); Potassium 3.6 MMOL/L (3.5-5.1); Total Protein 6.8 G/DL (6.4-8.3)
[2018-03-27] MEDS: INSULIN REGULAR 100 UNIT/ML SUBCUT SCH ×4 (07:26→21:04)
[2018-03-27] MEDS: busPIRone 15 MG TABLET PO SCH ×3 (10:14→21:04)
[2018-03-27] MEDS: LISINOPRIL/HCTZ 20-25 MG TABLET PO SCH (10:15)
[2018-03-28] MEDS: ONDANSETRON 4 MG/2 ML VIAL IV PRN ×5 (02:41→20:51)
[2018-03-28] MEDS: HYDROmorphone 2 MG/1 ML VIAL IV PRN ×5 (02:42→20:53)
[2018-03-28] MEDS: SODIUM CHLORIDE 0.9% 1,000 ML IV SCH ×3 (06:24→23:57)
[2018-03-28] MEDS: INSULIN REGULAR 100 UNIT/ML SUBCUT SCH ×4 (08:04→20:45)
[2018-03-28] MEDS: LISINOPRIL/HCTZ 20-25 MG TABLET PO SCH (09:03)
[2018-03-28] MEDS: busPIRone 15 MG TABLET PO SCH ×3 (09:04→20:45)
[2018-03-28] MEDS ORDERED: ZALEPLON 5 MG CAPSULE PO PRN (11:11)
[2018-03-29] MEDS: ONDANSETRON 4 MG/2 ML VIAL IV PRN ×3 (05:35→18:32)
[2018-03-29] MEDS: HYDROmorphone 2 MG/1 ML VIAL IV PRN ×4 (05:36→23:58)
[2018-03-29] MEDS: LISINOPRIL/HCTZ 20-25 MG TABLET PO SCH (08:47)
[2018-03-29] MEDS: busPIRone 15 MG TABLET PO SCH ×3 (08:47→21:24)
[2018-03-29] MEDS: INSULIN REGULAR 100 UNIT/ML SUBCUT SCH ×4 (08:49→21:24)
[2018-03-29] MEDS: SODIUM CHLORIDE 0.9% 1,000 ML IV SCH ×2 (08:49→18:00)
[2018-03-29 10:24] LABS: Basophils # 0.1 10*3/uL (0.0-0.2); Eosinophils # 0.2 10*3/uL (0.0-0.87); Eosinophils % 3.2 % (0.00-10.9); Hematocrit 38.1 VOL% (42.0-52.0); Immature Granulocytes % 0.2 %; Immature Granulocytes Absolute 0.01 #; Lymphocytes # 1.6 10*3/uL (1.4-4.0); Lymphocytes % 32.8 % (21.2-54.2); Mean Corpuscular HGB Conc 31.5 GM/DL (32-36); Mean Corpuscular Hemoglobin 27 PG (27-34); Mean Corpuscular Volume 85.4 FL (87-102); Monocytes # 0.4 10*3/uL (0.11-0.8); Monocytes % 7.2 % (1.7-12.7); Neutrophils # 2.8 10*3/uL (1.4-7.4); Neutrophils % 55.6 % (38.7-73.9); Platelet Count 435 T/CUMM (130-400); Red Blood Count 4.46 MC/CUMM (3.8-5.5); Red Cell Distribution Width 14.7 % (9.3-17.3)
[2018-03-29 10:50] LABS: Calcium 8.6 MG/DL (8.5-10.1); Osmolality,Calculated 281.1 MOS/KG (273-304); Potassium 3.5 MMOL/L (3.5-5.1)
[2018-03-29] MEDS ORDERED: DIAZEPAM 5 MG TABLET PO ONE (22:00)
[2018-03-30] MEDS: SODIUM CHLORIDE 0.9% 1,000 ML IV SCH
[2018-03-30] MEDS: HYDROmorphone 2 MG/1 ML VIAL IV PRN ×2 (05:05→12:03)
[2018-03-30] MEDS: INSULIN REGULAR 100 UNIT/ML SUBCUT SCH ×4 (07:49→20:58)
[2018-03-30] MEDS: LISINOPRIL/HCTZ 20-25 MG TABLET PO SCH (09:39)
[2018-03-30] MEDS: busPIRone 15 MG TABLET PO SCH ×3 (11:37→20:58)
[2018-03-30] MEDS ORDERED: DIAZEPAM 5 MG TABLET PO PRN (12:07)
[2018-03-30] MEDS ORDERED: hydrALAZINE 20 MG/1 ML VIAL IV PRN (12:09)
[2018-03-30] MEDS: amLODIPine 5 MG TABLET PO SCH (13:55)
[2018-03-30] MEDS: SODIUM CHLORIDE 0.45% 1,000 ML IV SCH (16:30)
[2018-03-30] MEDS: ONDANSETRON 4 MG/2 ML VIAL IV PRN (20:59)
[2018-03-31] MEDS: SODIUM CHLORIDE 0.9% 1,000 ML IV SCH ×2 (00:12→00:13)
[2018-03-31] MEDS: HYDROmorphone 2 MG/1 ML VIAL IV PRN ×3 (02:36→22:11)
[2018-03-31] MEDS: ONDANSETRON 4 MG/2 ML VIAL IV PRN ×4 (02:36→22:05)
[2018-03-31] MEDS: SODIUM CHLORIDE 0.45% 1,000 ML IV SCH ×3 (03:52→17:13)
[2018-03-31] MEDS: LISINOPRIL/HCTZ 20-25 MG TABLET PO SCH (08:52)
[2018-03-31] MEDS: amLODIPine 5 MG TABLET PO SCH (08:53)
[2018-03-31] MEDS: INSULIN REGULAR 100 UNIT/ML SUBCUT SCH ×4 (09:31→20:14)
[2018-03-31] MEDS: busPIRone 15 MG TABLET PO SCH ×3 (12:03→20:14)
[2018-03-31] MEDS ORDERED: traMADol 50 MG TABLET PO PRN (13:53)
[2018-04-01] MEDS: SODIUM CHLORIDE 0.45% 1,000 ML IV SCH ×3 (04:12→20:50)
[2018-04-01 05:26] LABS: Basophils # 0.1 10*3/uL (0.0-0.2); Basophils % 0.9 % (0.0-0.8); Eosinophils # 0.2 10*3/uL (0.0-0.87); Eosinophils % 3.2 % (0.00-10.9); Hematocrit 45.2 VOL% (42.0-52.0); Hemoglobin 14.2 GM/DL (14.0-18.0); Immature Granulocytes % 0.3 %; Immature Granulocytes Absolute 0.02 #; Lymphocytes # 2.6 10*3/uL (1.4-4.0); Lymphocytes % 38.8 % (21.2-54.2); Mean Corpuscular HGB Conc 31.4 GM/DL (32-36); Mean Corpuscular Hemoglobin 27 PG (27-34); Mean Corpuscular Volume 85.8 FL (87-102); Monocytes # 0.6 10*3/uL (0.11-0.8); Monocytes % 9.5 % (1.7-12.7); Neutrophils # 3.1 10*3/uL (1.4-7.4); Neutrophils % 47.3 % (38.7-73.9); Platelet Count 477 T/CUMM (130-400); Red Blood Count 5.27 MC/CUMM (3.8-5.5); Red Cell Distribution Width 14.7 % (9.3-17.3); White Blood Count 6.6 T/CUMM (4-12)
[2018-04-01 05:52] LABS: Albumin 3.8 G/DL (3.4-5.0); Bilirubin,Total 0.9 MG/DL (0.2-1.0); Calcium 9.6 MG/DL (8.5-10.1); Osmolality,Calculated 278.3 MOS/KG (273-304); Potassium 3.7 MMOL/L (3.5-5.1); Total Protein 8.4 G/DL (6.4-8.3)
[2018-04-01] MEDS: ONDANSETRON 4 MG/2 ML VIAL IV PRN ×2 (06:23→12:49)
[2018-04-01] MEDS: busPIRone 15 MG TABLET PO SCH ×3 (08:02→20:50)
[2018-04-01] MEDS: INSULIN REGULAR 100 UNIT/ML SUBCUT SCH ×4 (08:10→20:43)
[2018-04-01] MEDS: HYDROmorphone 2 MG/1 ML VIAL IV PRN ×2 (08:43→12:48)
[2018-04-01] MEDS: LISINOPRIL/HCTZ 20-25 MG TABLET PO SCH (09:34)
[2018-04-01] MEDS: amLODIPine 5 MG TABLET PO SCH (09:34)
[2018-04-01] MEDS ORDERED: LACTULOSE 20 GM/30 ML UDCUP PO PRN (11:52)
[2018-04-01] MEDS: PROMETHAZINE INJ 25 MG in SODIUM CHLORIDE 0.9% 50 ML IV PRN (17:37)
[2018-04-02] MEDS: PROMETHAZINE INJ 25 MG in SODIUM CHLORIDE 0.9% 50 ML IV PRN ×2 (02:53→11:30)
[2018-04-02] MEDS: SODIUM CHLORIDE 0.45% 1,000 ML IV SCH (07:29)
[2018-04-02] MEDS: INSULIN REGULAR 100 UNIT/ML SUBCUT SCH ×4 (07:52→20:14)
[2018-04-02] MEDS: HYDROmorphone 2 MG/1 ML VIAL IV PRN ×2 (08:36→22:40)
[2018-04-02] MEDS: busPIRone 15 MG TABLET PO SCH ×3 (10:15→20:35)
[2018-04-02] MEDS: LISINOPRIL/HCTZ 20-25 MG TABLET PO SCH (10:16)
[2018-04-02] MEDS: amLODIPine 5 MG TABLET PO SCH (10:16)
[2018-04-02] MEDS ORDERED: traMADol 50 MG TABLET PO PRN (11:42)
[2018-04-02] MEDS: ONDANSETRON 4 MG/2 ML VIAL IV PRN (22:41)
[2018-04-03] MEDS: PROMETHAZINE 25 MG TABLET PO PRN ×2 (04:25→14:06)
[2018-04-03] MEDS: INSULIN REGULAR 100 UNIT/ML SUBCUT SCH ×4 (07:28→21:25)
[2018-04-03] MEDS: HYDROmorphone 2 MG/1 ML VIAL IV PRN ×2 (09:10→14:12)
[2018-04-03] MEDS: LISINOPRIL/HCTZ 20-25 MG TABLET PO SCH (09:18)
[2018-04-03] MEDS: busPIRone 15 MG TABLET PO SCH ×3 (09:18→21:25)
[2018-04-03] MEDS: ONDANSETRON 4 MG/2 ML VIAL IV PRN (10:57)
[2018-04-03] MEDS ORDERED: SODIUM CHLORIDE 0.9% 1,000 ML IV SCH (11:30)
[2018-04-03] MEDS: PANTOPRAZOLE 40 MG VIAL IV SCH (14:07)
[2018-04-03] MEDS: LACTATED RINGERS 1,000 ML IV SCH ×2 (17:12→23:00)
[2018-04-03] MEDS: PROMETHAZINE INJ 25 MG in SODIUM CHLORIDE 0.9% 50 ML IV PRN (23:00)
[2018-04-04] MEDS: LACTATED RINGERS 1,000 ML IV SCH ×3 (02:40→20:22)
[2018-04-04] MEDS: INSULIN REGULAR 100 UNIT/ML SUBCUT SCH ×2 (07:30→11:52)
[2018-04-04] MEDS: PANTOPRAZOLE 40 MG VIAL IV SCH (09:45)
[2018-04-04] MEDS: LISINOPRIL/HCTZ 20-25 MG TABLET PO SCH (09:45)
[2018-04-04] MEDS: busPIRone 15 MG TABLET PO SCH ×2 (09:45→20:22)
[2018-04-04] MEDS: ONDANSETRON 4 MG/2 ML VIAL IV PRN (09:45)
[2018-04-04 11:44] VITALS: BP 137/89
[2018-04-04] MEDS: PROMETHAZINE INJ 25 MG in SODIUM CHLORIDE 0.9% 50 ML IV PRN (12:22)
== END 2018-04-04 15:25 | disposition home or self-care (01) | DRG 439 ==
LOC: EDBD → EDUNIT# → N.ED 15:30 → N.EDINP 18:54 → SUATTDRO 18:55 → N.3E 20:32
PROVIDERS: ADMIT Internal Medicine; ATTEND Internal Medicine

== ENCOUNTER 2018-04-17 15:19 | Inpatient (IN) ==
[2018-04-17] MEDS ORDERED: ONDANSETRON 4 MG/2 ML VIAL IV STA (15:49)
[2018-04-17] MEDS ORDERED: MORPHINE 4 MG/1 ML VIAL IV STA ×2 (15:49→17:38)
[2018-04-17] MEDS ORDERED: SODIUM CHLORIDE 0.9% 1,000 ML IV STA (15:49)
[2018-04-17 16:07] LABS: Basophils # 0.1 10*3/uL (0.0-0.2); Basophils % 0.9 % (0.0-0.8); Eosinophils # 0.1 10*3/uL (0.0-0.87); Eosinophils % 1.6 % (0.00-10.9); Hematocrit 43.1 VOL% (42.0-52.0); Hemoglobin 13.8 GM/DL (14.0-18.0); Immature Granulocytes % 0.2 %; Immature Granulocytes Absolute 0.02 #; Lymphocytes # 2.6 10*3/uL (1.4-4.0); Lymphocytes % 29.8 % (21.2-54.2); Mean Corpuscular Hemoglobin 27 PG (27-34); Mean Corpuscular Volume 85.3 FL (87-102); Mean Platelet Volume 9.3 FL (9.6-12.0); Monocytes # 0.7 10*3/uL (0.11-0.8); Monocytes % 7.7 % (1.7-12.7); Neutrophils # 5.2 10*3/uL (1.4-7.4); Neutrophils % 59.8 % (38.7-73.9); Platelet Count 286 T/CUMM (130-400); Red Blood Count 5.05 MC/CUMM (3.8-5.5); Red Cell Distribution Width 15.1 % (9.3-17.3); White Blood Count 8.7 T/CUMM (4-12)
[2018-04-17] MEDS: PIPERACILLIN/TAZOBACTAM 3,375 MG in SODIUM CHLORIDE 0.9% 100 ML IV SCH (16:26)
[2018-04-17 16:30] LABS: Alanine Aminotransferase 17 U/L (16-61); Albumin 3.9 G/DL (3.4-5.0); Alkaline Phosphatase 96 U/L (45-117); Amylase 215 U/L (25-115); Aspartate Amino Transferase 21 U/L (0-37); Bilirubin,Total < 0.39 MG/DL (0.2-1.0); Blood Urea Nitrogen 17 MG/DL (7-18); Calcium 9.2 MG/DL (8.5-10.1); Glucose 108 MG/DL (74-106); Osmolality,Calculated 281.4 MOS/KG (273-304); Potassium 4.3 MMOL/L (3.5-5.1); Sodium 140 MMOL/L (136-145); Total Protein 7.3 G/DL (6.4-8.3)
[2018-04-17 16:31] LABS: Lactic Acid 1.2 MMOL/L (0.4-2.0)
[2018-04-17 16:55] LABS: Apearance,Urine CLEAR (Clear); Bilirubin,Urine Negative (Negative); Blood, Urine Negative (Negative); Glucose,Urine (UA) 50 mg/dL (Negative); Ketones,Urine 5 mg/dL (Negative); Mucus,Urine Occasional /LPF (Occasional); Nitrite,Urine Negative (Negative); Protein,Urine Negative; RBC,Urine 1 /HPF (0-4); Urine Color Yellow (Yellow); Urine Specific Gravity 1.018 (1.001-1.035); Urine Urobilinogen < 2.0 EU/DL (0.2-1.0); WBC,Urine 1 /HPF (0-6)
[2018-04-17] MEDS ORDERED: MORPHINE 4 MG/1 ML VIAL IM STA (17:35)
[2018-04-17] MEDS ORDERED: MORPHINE 4 MG/1 ML VIAL ONE (17:40)
[2018-04-17] MEDS ORDERED: GLUCAGON 1 MG VIAL IM PRN (18:46)
[2018-04-17] MEDS ORDERED: DEXTROSE 50% 25 GM/50 ML SYRINGE IV PRN (18:46)
[2018-04-17] MEDS ORDERED: SODIUM CHLORIDE 0.9% 1,000 ML IV SCH (19:00)
[2018-04-17 19:34] LABS: Risk Ratio 5.11; VLDL CHOLESTEROL 71.8 MG/DL
[2018-04-17] MEDS: HYDROmorphone 2 MG/1 ML VIAL IV PRN (20:45)
[2018-04-17] MEDS: SODIUM CHLORIDE 0.9% 1,000 ML IV SCH (20:53)
[2018-04-18] MEDS: PROMETHAZINE INJ 12.5 MG in SODIUM CHLORIDE 0.9% 50 ML IV PRN ×3 (00:11→20:00)
[2018-04-18] MEDS: PIPERACILLIN/TAZOBACTAM 3,375 MG in SODIUM CHLORIDE 0.9% 100 ML IV SCH ×3 (00:49→17:03)
[2018-04-18 05:36] LABS: Basophils # 0.1 10*3/uL (0.0-0.2); Basophils % 0.9 % (0.0-0.8); Eosinophils # 0.2 10*3/uL (0.0-0.87); Eosinophils % 2.4 % (0.00-10.9); Hematocrit 42.3 VOL% (42.0-52.0); Hemoglobin 13.3 GM/DL (14.0-18.0); Immature Granulocytes % 0.3 %; Immature Granulocytes Absolute 0.02 #; Lymphocytes # 3.4 10*3/uL (1.4-4.0); Lymphocytes % 45.7 % (21.2-54.2); Mean Corpuscular HGB Conc 31.4 GM/DL (32-36); Mean Corpuscular Hemoglobin 27 PG (27-34); Mean Corpuscular Volume 86.2 FL (87-102); Mean Platelet Volume 9.1 FL (9.6-12.0); Monocytes # 0.6 10*3/uL (0.11-0.8); Monocytes % 7.9 % (1.7-12.7); Neutrophils # 3.2 10*3/uL (1.4-7.4); Neutrophils % 42.8 % (38.7-73.9); Platelet Count 261 T/CUMM (130-400); Red Blood Count 4.91 MC/CUMM (3.8-5.5); Red Cell Distribution Width 15.1 % (9.3-17.3); White Blood Count 7.5 T/CUMM (4-12)
[2018-04-18 06:06] LABS: Albumin 3.6 G/DL (3.4-5.0); Bilirubin,Total 1.2 MG/DL (0.2-1.0); Calcium 8.8 MG/DL (8.5-10.1); Osmolality,Calculated 280.1 MOS/KG (273-304); Potassium 3.7 MMOL/L (3.5-5.1); Total Protein 7.1 G/DL (6.4-8.3)
[2018-04-18] MEDS: HYDROmorphone 2 MG/1 ML VIAL IV PRN ×3 (06:28→20:09)
[2018-04-18] MEDS: INSULIN LISPRO 100 UNIT/ML SUBCUT SCH ×4 (07:30→17:34)
[2018-04-18] MEDS: SODIUM CHLORIDE 0.9% 1,000 ML IV SCH ×2 (20:15→22:19)
[2018-04-19] MEDS: INSULIN LISPRO 100 UNIT/ML SUBCUT SCH ×5 (00:37→23:53)
[2018-04-19] MEDS: SODIUM CHLORIDE 0.9% 1,000 ML IV SCH ×6 (01:15→18:14)
[2018-04-19 05:13] LABS: Basophils # 0.1 10*3/uL (0.0-0.2); Eosinophils # 0.2 10*3/uL (0.0-0.87); Eosinophils % 3.7 % (0.00-10.9); Hematocrit 41.3 VOL% (42.0-52.0); Immature Granulocytes % 0.2 %; Immature Granulocytes Absolute 0.01 #; Lymphocytes # 2.7 10*3/uL (1.4-4.0); Mean Corpuscular HGB Conc 31.5 GM/DL (32-36); Mean Corpuscular Hemoglobin 27 PG (27-34); Mean Corpuscular Volume 85.7 FL (87-102); Mean Platelet Volume 9.3 FL (9.6-12.0); Monocytes # 0.5 10*3/uL (0.11-0.8); Monocytes % 9.1 % (1.7-12.7); Neutrophils # 2.4 10*3/uL (1.4-7.4); Platelet Count 245 T/CUMM (130-400); Red Blood Count 4.82 MC/CUMM (3.8-5.5); Red Cell Distribution Width 14.6 % (9.3-17.3); White Blood Count 5.9 T/CUMM (4-12)
[2018-04-19 05:35] LABS: Albumin 3.5 G/DL (3.4-5.0); Bilirubin,Direct 0.11 MG/DL (0.0-0.20); Bilirubin,Indirect 0.3 MG/DL (0.0-1.0); Bilirubin,Total 0.4 MG/DL (0.2-1.0); Calcium 8.8 MG/DL (8.5-10.1); Osmolality,Calculated 278.4 MOS/KG (273-304); Potassium 3.8 MMOL/L (3.5-5.1); Total Protein 6.9 G/DL (6.4-8.3)
[2018-04-19] MEDS: HYDROmorphone 2 MG/1 ML VIAL IV PRN ×3 (11:15→22:12)
[2018-04-19] MEDS: PROMETHAZINE INJ 12.5 MG in SODIUM CHLORIDE 0.9% 50 ML IV PRN ×2 (11:16→18:15)
[2018-04-20] MEDS: PROMETHAZINE INJ 12.5 MG in SODIUM CHLORIDE 0.9% 50 ML IV PRN ×2 (00:04→10:56)
[2018-04-20] MEDS: SODIUM CHLORIDE 0.9% 1,000 ML IV SCH ×4 (00:05→11:59)
[2018-04-20] MEDS: INSULIN LISPRO 100 UNIT/ML SUBCUT SCH ×2 (08:02→11:47)
[2018-04-20] MEDS: HYDROmorphone 2 MG/1 ML VIAL IV PRN (10:57)
[2018-04-20 12:02] VITALS: BP 154/105
== END 2018-04-20 15:34 | disposition home or self-care (01) | DRG 439 ==
LOC: EDBD → EDUNIT# → N.ED 15:19 → N.EDINP 17:55 → SUATTDRO 17:55 → N.TELES 19:05 → N.3E 04-18 19:20
PROVIDERS: ADMIT Internal Medicine; ATTEND Internal Medicine

== ENCOUNTER 2018-04-21 00:47 | Inpatient (IN) ==
[2018-04-21] MEDS ORDERED: SODIUM CHLORIDE 0.9% 1,000 ML IV STA (01:14)
[2018-04-21] MEDS ORDERED: HYDROmorphone 2 MG/1 ML VIAL IV STA ×2 (01:14→02:48)
[2018-04-21] MEDS ORDERED: ONDANSETRON 4 MG/2 ML VIAL IV STA (01:14)
[2018-04-21] MEDS ORDERED: PANTOPRAZOLE 40 MG VIAL IV STA (01:14)
[2018-04-21 02:16] LABS: Basophils # 0.1 10*3/uL (0.0-0.2); Basophils % 0.7 % (0.0-0.8); Eosinophils # 0.2 10*3/uL (0.0-0.87); Hematocrit 42.2 VOL% (42.0-52.0); Hemoglobin 13.8 GM/DL (14.0-18.0); Immature Granulocytes % 0.3 %; Immature Granulocytes Absolute 0.02 #; Lymphocytes # 2.8 10*3/uL (1.4-4.0); Lymphocytes % 40.6 % (21.2-54.2); Mean Corpuscular HGB Conc 32.7 GM/DL (32-36); Mean Corpuscular Hemoglobin 27 PG (27-34); Mean Corpuscular Volume 83.9 FL (87-102); Mean Platelet Volume 9.5 FL (9.6-12.0); Monocytes # 0.6 10*3/uL (0.11-0.8); Monocytes % 8.7 % (1.7-12.7); Neutrophils # 3.3 10*3/uL (1.4-7.4); Neutrophils % 46.7 % (38.7-73.9); Platelet Count 265 T/CUMM (130-400); Red Blood Count 5.03 MC/CUMM (3.8-5.5); Red Cell Distribution Width 14.7 % (9.3-17.3)
[2018-04-21 02:25] LABS: Apearance,Urine CLEAR (Clear); Bilirubin,Urine Negative (Negative); Blood, Urine Negative (Negative); Glucose,Urine (UA) Negative (Negative); Hyaline Casts,Urine 1 /LPF (0-3); Ketones,Urine Negative (Negative); Mucus,Urine Occasional /LPF (Occasional); Nitrite,Urine Negative (Negative); Protein,Urine Negative; RBC,Urine 1 /HPF (0-4); Urine Color Straw (Yellow); Urine Specific Gravity 1.009 (1.001-1.035); Urine Urobilinogen < 2.0 EU/DL (0.2-1.0)
[2018-04-21 02:29] LABS: Lactic Acid 1.1 MMOL/L (0.4-2.0)
[2018-04-21 02:30] LABS: Alanine Aminotransferase 16 U/L (16-61); Albumin 3.8 G/DL (3.4-5.0); Alkaline Phosphatase 101 U/L (45-117); Amylase 278 U/L (25-115); Aspartate Amino Transferase 16 U/L (0-37); Bilirubin,Total < 0.39 MG/DL (0.2-1.0); Blood Urea Nitrogen 8 MG/DL (7-18); Calcium 8.9 MG/DL (8.5-10.1); Glucose 99 MG/DL (74-106); Osmolality,Calculated 274.5 MOS/KG (273-304); Potassium 3.5 MMOL/L (3.5-5.1); Sodium 139 MMOL/L (136-145); Total Protein 7.8 G/DL (6.4-8.3)
[2018-04-21] MEDS ORDERED: hydrALAZINE 20 MG/1 ML VIAL IV STA (03:49)
[2018-04-21] MEDS: HYDROmorphone 2 MG/1 ML VIAL IV PRN ×5 (06:02→23:14)
[2018-04-21] MEDS: SODIUM CHLORIDE 0.9% 1,000 ML IV SCH ×4 (06:04→23:16)
[2018-04-21] MEDS: ONDANSETRON 4 MG/2 ML VIAL IV PRN ×2 (07:49→22:10)
[2018-04-21] MEDS ORDERED: LISINOPRIL 20 MG TABLET PO SCH (09:00)
[2018-04-21] MEDS: PROMETHAZINE INJ 12.5 MG in SODIUM CHLORIDE 0.9% 50 ML IV PRN ×2 (10:11→16:23)
[2018-04-22 05:32] LABS: Basophils % 0.7 % (0.0-0.8); Eosinophils # 0.2 10*3/uL (0.0-0.87); Eosinophils % 2.8 % (0.00-10.9); Hematocrit 40.7 VOL% (42.0-52.0); Hemoglobin 12.8 GM/DL (14.0-18.0); Immature Granulocytes % 0.2 %; Immature Granulocytes Absolute 0.01 #; Lymphocytes % 36.1 % (21.2-54.2); Mean Corpuscular HGB Conc 31.4 GM/DL (32-36); Mean Corpuscular Hemoglobin 27 PG (27-34); Mean Corpuscular Volume 84.8 FL (87-102); Mean Platelet Volume 9.7 FL (9.6-12.0); Monocytes # 0.6 10*3/uL (0.11-0.8); Monocytes % 10.8 % (1.7-12.7); Neutrophils # 2.8 10*3/uL (1.4-7.4); Neutrophils % 49.4 % (38.7-73.9); Platelet Count 236 T/CUMM (130-400); Red Cell Distribution Width 14.7 % (9.3-17.3); White Blood Count 5.7 T/CUMM (4-12)
[2018-04-22 05:41] LABS: Calcium 8.6 MG/DL (8.5-10.1); Osmolality,Calculated 277.3 MOS/KG (273-304)
[2018-04-22 05:45] LABS: Albumin 3.4 G/DL (3.4-5.0); Calcium 8.3 MG/DL (8.5-10.1); Osmolality,Calculated 278.1 MOS/KG (273-304); Total Protein 6.7 G/DL (6.4-8.3)
[2018-04-22] MEDS: SODIUM CHLORIDE 0.9% 1,000 ML IV SCH (05:53)
[2018-04-22] MEDS: HYDROmorphone 2 MG/1 ML VIAL IV PRN ×4 (10:11→23:57)
[2018-04-22] MEDS ORDERED: GLUCAGON 1 MG VIAL IM PRN (10:16)
[2018-04-22] MEDS ORDERED: DEXTROSE 50% 25 GM/50 ML VIAL IV PRN (10:16)
[2018-04-22] MEDS: LACTATED RINGERS 1,000 ML IV SCH ×3 (10:21→21:33)
[2018-04-22] MEDS: PROMETHAZINE INJ 12.5 MG in SODIUM CHLORIDE 0.9% 50 ML IV PRN ×2 (11:58→19:00)
[2018-04-22] MEDS: INSULIN REGULAR 100 UNIT/ML SUBCUT SCH ×2 (15:54→18:55)
[2018-04-22] MEDS: BISACODYL 5 MG TABLET PO PRN (23:57)
[2018-04-23] MEDS: INSULIN REGULAR 100 UNIT/ML SUBCUT SCH ×4 (00:19→17:57)
[2018-04-23] MEDS: PROMETHAZINE INJ 12.5 MG in SODIUM CHLORIDE 0.9% 50 ML IV PRN ×3 (00:21→21:55)
[2018-04-23] MEDS: LACTATED RINGERS 1,000 ML IV SCH ×2 (03:11→14:16)
[2018-04-23 04:20] LABS: Basophils % 0.7 % (0.0-0.8); Eosinophils # 0.2 10*3/uL (0.0-0.87); Eosinophils % 3.4 % (0.00-10.9); Hematocrit 36.7 VOL% (42.0-52.0); Immature Granulocytes % 0.2 %; Immature Granulocytes Absolute 0.01 #; Lymphocytes # 2.8 10*3/uL (1.4-4.0); Lymphocytes % 49.7 % (21.2-54.2); Mean Corpuscular HGB Conc 32.7 GM/DL (32-36); Mean Corpuscular Hemoglobin 27 PG (27-34); Mean Corpuscular Volume 83.4 FL (87-102); Mean Platelet Volume 9.2 FL (9.6-12.0); Monocytes # 0.6 10*3/uL (0.11-0.8); Monocytes % 10.9 % (1.7-12.7); Neutrophils % 35.1 % (38.7-73.9); Platelet Count 220 T/CUMM (130-400); Red Cell Distribution Width 14.4 % (9.3-17.3); White Blood Count 5.7 T/CUMM (4-12)
[2018-04-23 04:49] LABS: Calcium 8.6 MG/DL (8.5-10.1); Osmolality,Calculated 278.3 MOS/KG (273-304); Potassium 3.6 MMOL/L (3.5-5.1)
[2018-04-23 05:18] LABS: Band Neutrophils 1 % (0-10); Eosinophils 6 % (0-10); Lymphocytes 46 % (20-55); Platelet Estimate Adequate; Segmented Neutrophils 37 % (50-85); Total Cells Counted 100
[2018-04-23] MEDS: HYDROmorphone 2 MG/1 ML VIAL IV PRN ×4 (08:27→22:02)
[2018-04-23] MEDS: LISINOPRIL 20 MG TABLET PO SCH (08:30)
[2018-04-24] MEDS: INSULIN REGULAR 100 UNIT/ML SUBCUT SCH ×4 (02:40→18:49)
[2018-04-24] MEDS: HYDROmorphone 2 MG/1 ML VIAL IV PRN ×4 (02:59→21:14)
[2018-04-24] MEDS: LACTATED RINGERS 1,000 ML IV SCH ×2 (04:41→18:35)
[2018-04-24 05:17] LABS: Basophils # 0.1 10*3/uL (0.0-0.2); Basophils % 0.9 % (0.0-0.8); Eosinophils # 0.2 10*3/uL (0.0-0.87); Eosinophils % 2.8 % (0.00-10.9); Hematocrit 37.8 VOL% (42.0-52.0); Hemoglobin 12.1 GM/DL (14.0-18.0); Immature Granulocytes % 0.2 %; Immature Granulocytes Absolute 0.01 #; Lymphocytes # 2.9 10*3/uL (1.4-4.0); Lymphocytes % 49.6 % (21.2-54.2); Mean Corpuscular Hemoglobin 27 PG (27-34); Mean Platelet Volume 9.4 FL (9.6-12.0); Monocytes # 0.6 10*3/uL (0.11-0.8); Monocytes % 10.1 % (1.7-12.7); Neutrophils # 2.1 10*3/uL (1.4-7.4); Neutrophils % 36.4 % (38.7-73.9); Platelet Count 231 T/CUMM (130-400); Red Cell Distribution Width 14.6 % (9.3-17.3); White Blood Count 5.8 T/CUMM (4-12)
[2018-04-24 05:41] LABS: Albumin 3.3 G/DL (3.4-5.0); Bilirubin,Total 0.6 MG/DL (0.2-1.0); Calcium 8.7 MG/DL (8.5-10.1); Potassium 3.2 MMOL/L (3.5-5.1); Total Protein 6.7 G/DL (6.4-8.3)
[2018-04-24 07:58] LABS: Band Neutrophils 4 % (0-10); Eosinophils 2 % (0-10); Hypochromasia Slight; Lymphocytes 51 % (20-55); Platelet Estimate Normal; Segmented Neutrophils 32 % (50-85); Total Cells Counted 100
[2018-04-24] MEDS: LISINOPRIL 20 MG TABLET PO SCH (08:15)
[2018-04-24] MEDS: ONDANSETRON 4 MG/2 ML VIAL IV PRN ×2 (08:15→17:00)
[2018-04-24] MEDS: PROMETHAZINE INJ 12.5 MG in SODIUM CHLORIDE 0.9% 50 ML IV PRN ×2 (10:29→19:43)
[2018-04-24] MEDS ORDERED: POTASSIUM CHLORIDE 20 MEQ TABLET PO PRN (10:46)
[2018-04-24] MEDS: ENOXAPARIN 40 MG/0.4 ML SYRINGE SUBCUT SCH (12:26)
[2018-04-25] MEDS: HYDROmorphone 2 MG/1 ML VIAL IV PRN ×2 (01:46→09:16)
[2018-04-25] MEDS: INSULIN REGULAR 100 UNIT/ML SUBCUT SCH ×4 (01:50→17:21)
[2018-04-25] MEDS: PROMETHAZINE INJ 12.5 MG in SODIUM CHLORIDE 0.9% 50 ML IV PRN ×3 (02:16→17:12)
[2018-04-25 05:11] LABS: Basophils # 0.1 10*3/uL (0.0-0.2); Basophils % 0.8 % (0.0-0.8); Eosinophils # 0.2 10*3/uL (0.0-0.87); Hematocrit 40.1 VOL% (42.0-52.0); Hemoglobin 12.8 GM/DL (14.0-18.0); Immature Granulocytes % 0.3 %; Immature Granulocytes Absolute 0.02 #; Lymphocytes # 2.4 10*3/uL (1.4-4.0); Mean Corpuscular HGB Conc 31.9 GM/DL (32-36); Mean Corpuscular Hemoglobin 27 PG (27-34); Mean Platelet Volume 9.6 FL (9.6-12.0); Monocytes # 0.7 10*3/uL (0.11-0.8); Neutrophils # 2.9 10*3/uL (1.4-7.4); Neutrophils % 45.9 % (38.7-73.9); Platelet Count 249 T/CUMM (130-400); Red Blood Count 4.72 MC/CUMM (3.8-5.5); Red Cell Distribution Width 14.6 % (9.3-17.3); White Blood Count 6.3 T/CUMM (4-12)
[2018-04-25 05:14] LABS: Albumin 3.5 G/DL (3.4-5.0); Bilirubin,Total 1.1 MG/DL (0.2-1.0); Calcium 8.7 MG/DL (8.5-10.1); Osmolality,Calculated 277.3 MOS/KG (273-304); Potassium 3.5 MMOL/L (3.5-5.1); Total Protein 7.1 G/DL (6.4-8.3)
[2018-04-25] MEDS: LISINOPRIL 20 MG TABLET PO SCH (09:17)
[2018-04-25] MEDS: PANTOPRAZOLE 40 MG TABLET PO SCH (09:17)
[2018-04-25] MEDS: LACTATED RINGERS 1,000 ML IV SCH (09:17)
[2018-04-25] MEDS: ENOXAPARIN 40 MG/0.4 ML SYRINGE SUBCUT SCH (09:23)
[2018-04-25] MEDS ORDERED: traMADol 50 MG TABLET PO PRN (10:33)
[2018-04-25] MEDS ORDERED: SCOPOLAMINE 1.5 MG PATCH TRANSDERM SCH (11:00)
[2018-04-25] MEDS: BISACODYL 5 MG TABLET PO PRN (21:15)
[2018-04-26] MEDS: LACTATED RINGERS 1,000 ML IV SCH ×2 (00:12→14:02)
[2018-04-26] MEDS: INSULIN REGULAR 100 UNIT/ML SUBCUT SCH ×4 (02:08→17:07)
[2018-04-26] MEDS ORDERED: ONDANSETRON 4 MG TABLET PO PRN (09:23)
[2018-04-26] MEDS: LISINOPRIL 20 MG TABLET PO SCH (09:35)
[2018-04-26] MEDS: PANTOPRAZOLE 40 MG TABLET PO SCH (09:35)
[2018-04-26] MEDS: ENOXAPARIN 40 MG/0.4 ML SYRINGE SUBCUT SCH (09:35)
[2018-04-26] MEDS: PROMETHAZINE 25 MG TABLET PO SCH ×2 (09:39→16:26)
[2018-04-26 16:34] VITALS: BP 155/101
== END 2018-04-26 17:35 | disposition home or self-care (01) | DRG 439 ==
LOC: EDUNIT# → N.ED 00:47 → N.EDINP 03:50 → SUATTDRO 03:50 → N.2E 04:22
PROVIDERS: ADMIT Internal Medicine; ATTEND Hospitalist

== ENCOUNTER 2018-04-30 19:47 | Inpatient (IN) ==
[2018-04-30] MEDS ORDERED: ONDANSETRON 4 MG/2 ML VIAL IV STA (19:54)
[2018-04-30] MEDS ORDERED: SODIUM CHLORIDE 0.9% 1,000 ML IV STA (19:54)
[2018-04-30] MEDS ORDERED: HYDROmorphone 2 MG/1 ML VIAL IV STA ×2 (19:54→21:04)
[2018-04-30 20:41] LABS: Basophils # 0.1 10*3/uL (0.0-0.2); Basophils % 0.6 % (0.0-0.8); Eosinophils # 0.1 10*3/uL (0.0-0.87); Eosinophils % 0.9 % (0.00-10.9); Hematocrit 46.9 VOL% (42.0-52.0); Hemoglobin 15.3 GM/DL (14.0-18.0); Immature Granulocytes % 0.3 %; Immature Granulocytes Absolute 0.04 #; Lymphocytes # 2.7 10*3/uL (1.4-4.0); Mean Corpuscular HGB Conc 32.6 GM/DL (32-36); Mean Corpuscular Hemoglobin 27 PG (27-34); Mean Corpuscular Volume 83.3 FL (87-102); Monocytes % 8.1 % (1.7-12.7); Neutrophils # 8.5 10*3/uL (1.4-7.4); Neutrophils % 68.1 % (38.7-73.9); Platelet Count 309 T/CUMM (130-400); Red Blood Count 5.63 MC/CUMM (3.8-5.5); Red Cell Distribution Width 14.9 % (9.3-17.3); White Blood Count 12.4 T/CUMM (4-12)
[2018-04-30 21:05] LABS: Albumin 4.2 G/DL (3.4-5.0); Bilirubin,Total 0.6 MG/DL (0.2-1.0); Calcium 9.2 MG/DL (8.5-10.1); Potassium 3.4 MMOL/L (3.5-5.1); Total Protein 8.3 G/DL (6.4-8.3)
[2018-04-30] MEDS ORDERED: MORPHINE 4 MG/1 ML VIAL IV PRN (21:27)
[2018-04-30] MEDS ORDERED: NICOTINE 21 MG/24 HR PATCH TRANSDERM PRN (21:27)
[2018-04-30] MEDS ORDERED: ACETAMINOPHEN 325 MG TABLET PO PRN (21:27)
[2018-04-30] MEDS ORDERED: diphenhydrAMINE CAP 25 MG CAPSULE PO PRN (21:27)
[2018-04-30] MEDS ORDERED: ONDANSETRON 4 MG/2 ML VIAL IV PRN (21:27)
[2018-04-30] MEDS: SODIUM CHLORIDE 0.9% 1,000 ML IV SCH (23:45)
[2018-05-01] MEDS ORDERED: SODIUM CHLORIDE 0.9% IV PRN (02:46)
[2018-05-01] MEDS ORDERED: PROCHLORPERAZINE IV PRN (02:46)
[2018-05-01] MEDS ORDERED: DEXTROSE 50% 25 GM/50 ML VIAL IV PRN (03:11)
[2018-05-01] MEDS ORDERED: GLUCAGON 1 MG VIAL IM PRN (03:11)
[2018-05-01] MEDS: PROCHLORPERAZINE 10 MG TABLET PO PRN ×2 (04:56→09:09)
[2018-05-01] MEDS: HYDROmorphone 2 MG/1 ML VIAL IV PRN ×5 (04:56→21:48)
[2018-05-01 05:13] LABS: Basophils % 0.4 % (0.0-0.8); Eosinophils % 0.2 % (0.00-10.9); Hematocrit 45.5 VOL% (42.0-52.0); Hemoglobin 14.7 GM/DL (14.0-18.0); Immature Granulocytes % 0.3 %; Immature Granulocytes Absolute 0.03 #; Lymphocytes # 1.4 10*3/uL (1.4-4.0); Lymphocytes % 12.1 % (21.2-54.2); Mean Corpuscular HGB Conc 32.3 GM/DL (32-36); Mean Corpuscular Hemoglobin 27 PG (27-34); Mean Corpuscular Volume 84.6 FL (87-102); Mean Platelet Volume 9.1 FL (9.6-12.0); Monocytes # 0.8 10*3/uL (0.11-0.8); Monocytes % 6.9 % (1.7-12.7); Neutrophils % 80.1 % (38.7-73.9); Platelet Count 284 T/CUMM (130-400); Red Blood Count 5.38 MC/CUMM (3.8-5.5); White Blood Count 11.2 T/CUMM (4-12)
[2018-05-01 05:26] LABS: Albumin 3.6 G/DL (3.4-5.0); Bilirubin,Total 1.2 MG/DL (0.2-1.0); Calcium 8.6 MG/DL (8.5-10.1); Osmolality,Calculated 271.1 MOS/KG (273-304); Potassium 4.3 MMOL/L (3.5-5.1); Total Protein 7.5 G/DL (6.4-8.3)
[2018-05-01] MEDS: ONDANSETRON 4 MG/2 ML VIAL IV PRN ×3 (06:09→21:45)
[2018-05-01] MEDS: PANTOPRAZOLE 40 MG TABLET PO SCH (09:09)
[2018-05-01] MEDS: INSULIN REGULAR 100 UNIT/ML SUBCUT SCH ×3 (12:05→21:31)
[2018-05-01] MEDS: SODIUM CHLORIDE 0.9% 1,000 ML IV SCH ×2 (12:06→16:54)
[2018-05-02] MEDS: SODIUM CHLORIDE 0.9% 1,000 ML IV SCH ×3 (00:05→14:33)
[2018-05-02] MEDS: HYDROmorphone 2 MG/1 ML VIAL IV PRN ×7 (01:31→22:10)
[2018-05-02] MEDS: ONDANSETRON 4 MG/2 ML VIAL IV PRN ×3 (07:02→22:14)
[2018-05-02 09:06] LABS: Basophils % 0.2 % (0.0-0.8); Eosinophils # 0.1 10*3/uL (0.0-0.87); Eosinophils % 0.5 % (0.00-10.9); Hematocrit 43.2 VOL% (42.0-52.0); Hemoglobin 13.9 GM/DL (14.0-18.0); Immature Granulocytes % 0.6 %; Immature Granulocytes Absolute 0.08 #; Lymphocytes # 1.5 10*3/uL (1.4-4.0); Lymphocytes % 11.4 % (21.2-54.2); Mean Corpuscular HGB Conc 32.2 GM/DL (32-36); Mean Corpuscular Hemoglobin 27 PG (27-34); Mean Corpuscular Volume 84.4 FL (87-102); Mean Platelet Volume 9.4 FL (9.6-12.0); Monocytes # 1.1 10*3/uL (0.11-0.8); Monocytes % 7.9 % (1.7-12.7); Neutrophils # 10.6 10*3/uL (1.4-7.4); Neutrophils % 79.4 % (38.7-73.9); Platelet Count 283 T/CUMM (130-400); Red Blood Count 5.12 MC/CUMM (3.8-5.5); White Blood Count 13.3 T/CUMM (4-12)
[2018-05-02] MEDS: INSULIN REGULAR 100 UNIT/ML SUBCUT SCH ×4 (09:08→22:11)
[2018-05-02] MEDS: PANTOPRAZOLE 40 MG TABLET PO SCH (09:09)
[2018-05-02 09:25] LABS: Calcium 8.2 MG/DL (8.5-10.1); Osmolality,Calculated 272.8 MOS/KG (273-304); Potassium 3.9 MMOL/L (3.5-5.1)
[2018-05-02] MEDS: KETOROLAC 30 MG/1 ML VIAL IV SCH ×3 (12:28→22:11)
[2018-05-02] MEDS: POLYETHYLENE GLYCOL POWDER 17 GM PACK PO SCH (14:28)
[2018-05-03] MEDS: SODIUM CHLORIDE 0.9% 1,000 ML IV SCH ×3 (02:37→14:36)
[2018-05-03] MEDS: KETOROLAC 30 MG/1 ML VIAL IV SCH ×4 (05:22→22:46)
[2018-05-03] MEDS: INSULIN REGULAR 100 UNIT/ML SUBCUT SCH ×4 (09:46→20:49)
[2018-05-03] MEDS: PANTOPRAZOLE 40 MG TABLET PO SCH (10:53)
[2018-05-03] MEDS: HYDROmorphone 2 MG/1 ML VIAL IV PRN ×5 (10:53→22:47)
[2018-05-03] MEDS: POLYETHYLENE GLYCOL POWDER 17 GM PACK PO SCH (10:54)
[2018-05-03] MEDS ORDERED: LIDOCAINE 2% 5 ML VIAL ONE (14:00)
[2018-05-03] MEDS ORDERED: PROPOFOL 200 MG/20 ML VIAL IV ONE (14:00)
[2018-05-04] MEDS: HYDROmorphone 2 MG/1 ML VIAL IV PRN ×6 (04:18→23:37)
[2018-05-04] MEDS: KETOROLAC 30 MG/1 ML VIAL IV SCH ×4 (04:19→23:36)
[2018-05-04] MEDS: SODIUM CHLORIDE 0.9% 1,000 ML IV SCH ×3 (04:22→22:07)
[2018-05-04] MEDS: INSULIN REGULAR 100 UNIT/ML SUBCUT SCH ×4 (08:18→20:37)
[2018-05-04] MEDS: PANTOPRAZOLE 40 MG TABLET PO SCH (09:25)
[2018-05-04] MEDS: POLYETHYLENE GLYCOL POWDER 17 GM PACK PO SCH (09:25)
[2018-05-04] MEDS: ONDANSETRON 4 MG/2 ML VIAL IV PRN (18:13)
[2018-05-04] MEDS: LIPASE/PROTEASE/AMYLASE 4,200 UNITS CAPSULE PO SCH (18:13)
[2018-05-05] MEDS: KETOROLAC 30 MG/1 ML VIAL IV SCH ×4 (05:50→22:05)
[2018-05-05] MEDS: SODIUM CHLORIDE 0.9% 1,000 ML IV SCH ×3 (07:00→23:23)
[2018-05-05] MEDS: INSULIN REGULAR 100 UNIT/ML SUBCUT SCH ×4 (08:03→22:07)
[2018-05-05] MEDS: HYDROmorphone 2 MG/1 ML VIAL IV PRN ×3 (08:50→22:06)
[2018-05-05] MEDS: ONDANSETRON 4 MG/2 ML VIAL IV PRN ×3 (08:50→22:05)
[2018-05-05] MEDS: PANTOPRAZOLE 40 MG TABLET PO SCH (08:50)
[2018-05-05] MEDS: LIPASE/PROTEASE/AMYLASE 4,200 UNITS CAPSULE PO SCH ×3 (08:51→18:13)
[2018-05-05] MEDS: POLYETHYLENE GLYCOL POWDER 17 GM PACK PO SCH (08:51)
[2018-05-05] MEDS: PROMETHAZINE 25 MG/1 ML VIAL IM PRN (11:13)
[2018-05-05] MEDS: LISINOPRIL 20 MG TABLET PO SCH (16:25)
[2018-05-06] MEDS: HYDROmorphone 2 MG/1 ML VIAL IV PRN ×6 (00:43→21:01)
[2018-05-06] MEDS: ONDANSETRON 4 MG/2 ML VIAL IV PRN ×4 (00:43→21:01)
[2018-05-06] MEDS: PROMETHAZINE 25 MG/1 ML VIAL IM PRN ×2 (06:23→17:58)
[2018-05-06] MEDS: KETOROLAC 30 MG/1 ML VIAL IV SCH ×4 (06:43→21:02)
[2018-05-06] MEDS: SODIUM CHLORIDE 0.9% 1,000 ML IV SCH ×2 (07:23→15:46)
[2018-05-06] MEDS: INSULIN REGULAR 100 UNIT/ML SUBCUT SCH ×4 (08:24→22:01)
[2018-05-06] MEDS: POLYETHYLENE GLYCOL POWDER 17 GM PACK PO SCH (10:35)
[2018-05-06] MEDS: LISINOPRIL 20 MG TABLET PO SCH (10:35)
[2018-05-06] MEDS: LIPASE/PROTEASE/AMYLASE 4,200 UNITS CAPSULE PO SCH ×3 (10:35→17:58)
[2018-05-06] MEDS: PANTOPRAZOLE 40 MG TABLET PO SCH (10:35)
[2018-05-07] MEDS: HYDROmorphone 2 MG/1 ML VIAL IV PRN ×6 (00:04→23:37)
[2018-05-07] MEDS: SODIUM CHLORIDE 0.9% 1,000 ML IV SCH ×3 (00:22→16:31)
[2018-05-07] MEDS: KETOROLAC 30 MG/1 ML VIAL IV SCH ×2 (00:22→04:19)
[2018-05-07] MEDS: ONDANSETRON 4 MG/2 ML VIAL IV PRN ×5 (03:06→23:43)
[2018-05-07] MEDS: LIPASE/PROTEASE/AMYLASE 4,200 UNITS CAPSULE PO SCH ×3 (10:13→17:08)
[2018-05-07] MEDS: LISINOPRIL 20 MG TABLET PO SCH (10:13)
[2018-05-07] MEDS: PANTOPRAZOLE 40 MG TABLET PO SCH (10:14)
[2018-05-07] MEDS: POLYETHYLENE GLYCOL POWDER 17 GM PACK PO SCH (10:14)
[2018-05-07] MEDS: INSULIN REGULAR 100 UNIT/ML SUBCUT SCH ×4 (10:14→20:12)
[2018-05-08] MEDS: ONDANSETRON 4 MG/2 ML VIAL IV PRN ×2 (05:02→12:46)
[2018-05-08] MEDS: HYDROmorphone 2 MG/1 ML VIAL IV PRN ×7 (05:02→18:41)
[2018-05-08] MEDS: SODIUM CHLORIDE 0.9% 1,000 ML IV SCH ×4 (06:17→23:54)
[2018-05-08 06:46] LABS: Risk Ratio 5.16
[2018-05-08] MEDS: INSULIN REGULAR 100 UNIT/ML SUBCUT SCH ×4 (08:28→21:10)
[2018-05-08] MEDS: POLYETHYLENE GLYCOL POWDER 17 GM PACK PO SCH (09:06)
[2018-05-08] MEDS: LISINOPRIL 20 MG TABLET PO SCH (09:06)
[2018-05-08] MEDS: PANTOPRAZOLE 40 MG TABLET PO SCH (09:06)
[2018-05-08] MEDS: LIPASE/PROTEASE/AMYLASE 4,200 UNITS CAPSULE PO SCH ×3 (09:06→16:30)
[2018-05-08] MEDS: PROMETHAZINE 25 MG/1 ML VIAL IM PRN (16:30)
[2018-05-09] MEDS: HYDROmorphone 2 MG/1 ML VIAL IV PRN ×5 (02:40→21:33)
[2018-05-09] MEDS: ONDANSETRON 4 MG/2 ML VIAL IV PRN ×4 (02:53→21:40)
[2018-05-09] MEDS: LIPASE/PROTEASE/AMYLASE 4,200 UNITS CAPSULE PO SCH ×3 (08:38→18:24)
[2018-05-09] MEDS: PANTOPRAZOLE 40 MG TABLET PO SCH (08:38)
[2018-05-09] MEDS: LISINOPRIL 20 MG TABLET PO SCH (08:38)
[2018-05-09] MEDS: SODIUM CHLORIDE 0.9% 1,000 ML IV SCH ×3 (08:40→23:58)
[2018-05-09] MEDS: POLYETHYLENE GLYCOL POWDER 17 GM PACK PO SCH (08:40)
[2018-05-09] MEDS: INSULIN REGULAR 100 UNIT/ML SUBCUT SCH ×4 (08:40→20:52)
[2018-05-09] MEDS ORDERED: traMADol 50 MG TABLET PO PRN (16:16)
[2018-05-09] MEDS ORDERED: traMADol 50 MG TABLET PO SCH (18:00)
[2018-05-09] MEDS: PROMETHAZINE 25 MG/1 ML VIAL IM PRN (18:24)
[2018-05-10] MEDS: HYDROmorphone 2 MG/1 ML VIAL IV PRN ×2 (00:02→14:01)
[2018-05-10] MEDS: INSULIN REGULAR 100 UNIT/ML SUBCUT SCH ×2 (08:06→12:01)
[2018-05-10] MEDS: ONDANSETRON 4 MG/2 ML VIAL IV PRN (08:55)
[2018-05-10] MEDS: SODIUM CHLORIDE 0.9% 1,000 ML IV SCH (08:56)
[2018-05-10] MEDS: POLYETHYLENE GLYCOL POWDER 17 GM PACK PO SCH (09:00)
[2018-05-10] MEDS: LIPASE/PROTEASE/AMYLASE 4,200 UNITS CAPSULE PO SCH ×2 (09:00→13:01)
[2018-05-10] MEDS: LISINOPRIL 20 MG TABLET PO SCH (09:00)
[2018-05-10] MEDS: PANTOPRAZOLE 40 MG TABLET PO SCH (09:01)
[2018-05-10 12:07] VITALS: BP 132/81
== END 2018-05-10 15:08 | disposition home or self-care (01) | DRG 439 ==
LOC: EDBD → EDUNIT# → N.ED 19:47 → N.EDINP 21:27 → SUATTDRO 21:27 → N.5E 22:42
PROVIDERS: ADMIT Internal Medicine Geriatric Medicine; ATTEND Internal Medicine

== ENCOUNTER 2018-05-13 21:42 | Inpatient (IN) ==
[2018-05-13] MEDS ORDERED: HYDROmorphone 2 MG/1 ML VIAL IV STA (22:13)
[2018-05-13] MEDS ORDERED: SODIUM CHLORIDE 0.9% 1,000 ML IV STA (22:13)
[2018-05-13] MEDS ORDERED: ONDANSETRON 4 MG/2 ML VIAL IV STA (22:13)
[2018-05-13 22:31] LABS: Basophils # 0.1 10*3/uL (0.0-0.2); Basophils % 0.6 % (0.0-0.8); Eosinophils # 0.1 10*3/uL (0.0-0.87); Eosinophils % 1.2 % (0.00-10.9); Hematocrit 39.9 VOL% (42.0-52.0); Immature Granulocytes % 0.4 %; Immature Granulocytes Absolute 0.05 #; Lymphocytes # 2.6 10*3/uL (1.4-4.0); Lymphocytes % 22.9 % (21.2-54.2); Mean Corpuscular HGB Conc 32.6 GM/DL (32-36); Mean Corpuscular Hemoglobin 27 PG (27-34); Mean Corpuscular Volume 82.3 FL (87-102); Mean Platelet Volume 8.6 FL (9.6-12.0); Monocytes # 0.7 10*3/uL (0.11-0.8); Monocytes % 6.3 % (1.7-12.7); Neutrophils # 7.9 10*3/uL (1.4-7.4); Neutrophils % 68.6 % (38.7-73.9); Platelet Count 594 T/CUMM (130-400); Red Blood Count 4.85 MC/CUMM (3.8-5.5); Red Cell Distribution Width 15.3 % (9.3-17.3); White Blood Count 11.5 T/CUMM (4-12)
[2018-05-13 22:57] LABS: Albumin 3.6 G/DL (3.4-5.0); Bilirubin,Total 0.5 MG/DL (0.2-1.0); Calcium 8.7 MG/DL (8.5-10.1); Osmolality,Calculated 276.7 MOS/KG (273-304); Potassium 3.2 MMOL/L (3.5-5.1); Total Protein 7.7 G/DL (6.4-8.3)
[2018-05-13] MEDS ORDERED: NICOTINE 21 MG/24 HR PATCH TRANSDERM PRN (23:23)
[2018-05-13] MEDS ORDERED: PROMETHAZINE 25 MG/1 ML VIAL IM PRN (23:23)
[2018-05-13] MEDS ORDERED: diphenhydrAMINE CAP 25 MG CAPSULE PO PRN (23:23)
[2018-05-14] MEDS: SODIUM CHLORIDE 0.9% 1,000 ML IV SCH ×3 (01:00→17:52)
[2018-05-14] MEDS: ONDANSETRON 4 MG/2 ML VIAL IV PRN ×4 (01:44→22:06)
[2018-05-14] MEDS: HYDROmorphone 2 MG/1 ML VIAL IV PRN ×6 (01:44→22:06)
[2018-05-14] MEDS: SODIUM CHLOR 0.9% KCL 20 MEQ 20 MEQ/1,000 ML BAG IV SCH ×2 (05:45→10:08)
[2018-05-14 06:28] LABS: Apearance,Urine CLEAR (Clear); Bilirubin,Urine Negative (Negative); Blood, Urine Negative (Negative); Calcium Oxalate Crystals,Urine Occasional /HPF (Few); Glucose,Urine (UA) Negative (Negative); Ketones,Urine Negative (Negative); Mucus,Urine Occasional /LPF (Occasional); Nitrite,Urine Negative (Negative); Protein,Urine Negative; Urine Color Yellow (Yellow); Urine Specific Gravity 1.028 (1.001-1.035); Urine Urobilinogen < 2.0 EU/DL (0.2-1.0); WBC,Urine 1 /HPF (0-6)
[2018-05-14 07:49] LABS: Albumin 3.1 G/DL (3.4-5.0); Bilirubin,Total 0.5 MG/DL (0.2-1.0); Calcium 8.2 MG/DL (8.5-10.1); Osmolality,Calculated 278.3 MOS/KG (273-304); Potassium 3.3 MMOL/L (3.5-5.1); Total Protein 6.9 G/DL (6.4-8.3)
[2018-05-14] MEDS: LISINOPRIL 20 MG TABLET PO SCH (09:10)
[2018-05-14] MEDS: LIPASE/PROTEASE/AMYLASE 4,200 UNITS CAPSULE PO SCH ×3 (09:10→16:05)
[2018-05-14] MEDS: PANTOPRAZOLE 40 MG TABLET PO SCH (09:11)
[2018-05-14] MEDS: POLYETHYLENE GLYCOL POWDER 17 GM PACK PO SCH (09:11)
[2018-05-14] MEDS: DIAZEPAM 5 MG TABLET PO SCH (10:10)
[2018-05-14] MEDS ORDERED: GLUCAGON 1 MG VIAL IM PRN (13:35)
[2018-05-14] MEDS ORDERED: DEXTROSE 50% 25 GM/50 ML VIAL IV PRN (13:35)
[2018-05-14] MEDS: POTASSIUM CHLORIDE RIDER 10 MEQ in PREMIX 1 EACH IV SCH ×4 (14:27→17:42)
[2018-05-14] MEDS: INSULIN REGULAR 100 UNIT/ML SUBCUT SCH (19:06)
[2018-05-14] MEDS: ACETAMINOPHEN 325 MG TABLET PO PRN (22:06)
[2018-05-15] MEDS: INSULIN REGULAR 100 UNIT/ML SUBCUT SCH ×4 (00:45→17:54)
[2018-05-15] MEDS: SODIUM CHLORIDE 0.9% 1,000 ML IV SCH ×3 (01:15→17:53)
[2018-05-15 07:25] LABS: Calcium 8.7 MG/DL (8.5-10.1); Osmolality,Calculated 276.3 MOS/KG (273-304); Potassium 3.8 MMOL/L (3.5-5.1); Prealbumin 26.7 MG/DL (20-40)
[2018-05-15] MEDS: DIAZEPAM 5 MG TABLET PO SCH (09:21)
[2018-05-15] MEDS: LIPASE/PROTEASE/AMYLASE 4,200 UNITS CAPSULE PO SCH ×3 (09:21→16:55)
[2018-05-15] MEDS: LISINOPRIL 20 MG TABLET PO SCH (09:21)
[2018-05-15] MEDS: POLYETHYLENE GLYCOL POWDER 17 GM PACK PO SCH (09:21)
[2018-05-15] MEDS: PANTOPRAZOLE 40 MG TABLET PO SCH (09:22)
[2018-05-15] MEDS: HYDROmorphone 2 MG/1 ML VIAL IV PRN ×3 (09:27→20:32)
[2018-05-15] MEDS: ONDANSETRON 4 MG/2 ML VIAL IV PRN ×2 (09:28→23:03)
[2018-05-15] MEDS: ACETAMINOPHEN 325 MG TABLET PO PRN (23:01)
[2018-05-16] MEDS: HYDROmorphone 2 MG/1 ML VIAL IV PRN ×5 (01:30→21:12)
[2018-05-16] MEDS: SODIUM CHLORIDE 0.9% 1,000 ML IV SCH ×4 (01:30→19:30)
[2018-05-16] MEDS: INSULIN REGULAR 100 UNIT/ML SUBCUT SCH ×4 (01:34→17:26)
[2018-05-16 06:21] LABS: Calcium 8.8 MG/DL (8.5-10.1); Osmolality,Calculated 274.4 MOS/KG (273-304); Potassium 3.2 MMOL/L (3.5-5.1)
[2018-05-16] MEDS: POLYETHYLENE GLYCOL POWDER 17 GM PACK PO SCH (08:12)
[2018-05-16] MEDS: LISINOPRIL 20 MG TABLET PO SCH (08:12)
[2018-05-16] MEDS: DIAZEPAM 5 MG TABLET PO SCH (08:13)
[2018-05-16] MEDS: PANTOPRAZOLE 40 MG TABLET PO SCH (08:13)
[2018-05-16] MEDS: LIPASE/PROTEASE/AMYLASE 4,200 UNITS CAPSULE PO SCH ×3 (08:16→16:02)
[2018-05-16] MEDS ORDERED: PROPOFOL 200 MG/20 ML VIAL IV ONE (09:10)
[2018-05-16] MEDS ORDERED: LIDOCAINE 2% 5 ML VIAL ONE (09:10)
[2018-05-16] MEDS: POTASSIUM CHLORIDE 20 MEQ/15 ML UDCUP PER TUBE PRN ×3 (14:36→21:42)
[2018-05-16] MEDS: ONDANSETRON 4 MG/2 ML VIAL IV PRN ×2 (18:10→21:14)
[2018-05-17] MEDS: HYDROmorphone 2 MG/1 ML VIAL IV PRN ×5 (00:58→20:46)
[2018-05-17] MEDS: ONDANSETRON 4 MG/2 ML VIAL IV PRN ×5 (01:01→20:48)
[2018-05-17] MEDS: INSULIN REGULAR 100 UNIT/ML SUBCUT SCH ×4 (01:02→17:19)
[2018-05-17] MEDS: POTASSIUM CHLORIDE 20 MEQ/15 ML UDCUP PER TUBE PRN ×4 (02:20→15:08)
[2018-05-17] MEDS: SODIUM CHLORIDE 0.9% 1,000 ML IV SCH ×2 (04:05→20:49)
[2018-05-17 08:02] LABS: Calcium 8.5 MG/DL (8.5-10.1); Osmolality,Calculated 278.3 MOS/KG (273-304); Potassium 3.3 MMOL/L (3.5-5.1)
[2018-05-17] MEDS: LISINOPRIL 20 MG TABLET PO SCH (08:07)
[2018-05-17] MEDS: DIAZEPAM 5 MG TABLET PO SCH (08:07)
[2018-05-17] MEDS: LIPASE/PROTEASE/AMYLASE 4,200 UNITS CAPSULE PO SCH ×3 (08:08→16:51)
[2018-05-17] MEDS: POLYETHYLENE GLYCOL POWDER 17 GM PACK PO SCH (08:08)
[2018-05-17] MEDS: PANTOPRAZOLE 40 MG TABLET PO SCH (08:08)
[2018-05-18] MEDS: INSULIN REGULAR 100 UNIT/ML SUBCUT SCH ×3 (01:27→11:21)
[2018-05-18] MEDS: HYDROmorphone 2 MG/1 ML VIAL IV PRN ×2 (01:43→09:35)
[2018-05-18] MEDS: ONDANSETRON 4 MG/2 ML VIAL IV PRN ×3 (01:46→13:18)
[2018-05-18] MEDS: SODIUM CHLORIDE 0.9% 1,000 ML IV SCH (05:05)
[2018-05-18] MEDS: POTASSIUM CHLORIDE 20 MEQ/15 ML UDCUP PER TUBE PRN (05:06)
[2018-05-18] MEDS: LIPASE/PROTEASE/AMYLASE 4,200 UNITS CAPSULE PO SCH ×2 (08:45→13:03)
[2018-05-18] MEDS: POLYETHYLENE GLYCOL POWDER 17 GM PACK PO SCH (08:45)
[2018-05-18] MEDS: DIAZEPAM 5 MG TABLET PO SCH (09:32)
[2018-05-18] MEDS: PANTOPRAZOLE 40 MG TABLET PO SCH (09:32)
[2018-05-18 11:58] VITALS: BP 156/103
== END 2018-05-18 14:54 | disposition home health service (06) | DRG 439 ==
LOC: EDUNIT# → EDBD → N.ED 21:42 → SUATTDRO 23:23 → N.EDINP 23:23 → N.5E 23:51
PROVIDERS: ADMIT Internal Medicine; ATTEND Internal Medicine Nephrology

== ENCOUNTER 2018-06-03 19:16 | Inpatient (IN) ==
[2018-06-03] MEDS ORDERED: PANTOPRAZOLE 40 MG VIAL IV STA (20:13)
[2018-06-03] MEDS ORDERED: ONDANSETRON 4 MG/2 ML VIAL IV STA (20:13)
[2018-06-03] MEDS ORDERED: METOCLOPRAMIDE 10 MG/2 ML VIAL IV STA (20:13)
[2018-06-03] MEDS ORDERED: SODIUM CHLORIDE 0.9% 1,000 ML IV STA (20:13)
[2018-06-03] MEDS ORDERED: HYDROmorphone 2 MG/1 ML VIAL IV STA (20:16)
[2018-06-03 20:29] LABS: Basophils # 0.1 10*3/uL (0.0-0.2); Basophils % 0.6 % (0.0-0.8); Eosinophils # 0.1 10*3/uL (0.0-0.87); Eosinophils % 1.4 % (0.00-10.9); Hematocrit 39.3 VOL% (42.0-52.0); Hemoglobin 12.8 GM/DL (14.0-18.0); Immature Granulocytes % 0.4 %; Immature Granulocytes Absolute 0.03 #; Lymphocytes # 2.2 10*3/uL (1.4-4.0); Lymphocytes % 26.1 % (21.2-54.2); Mean Corpuscular HGB Conc 32.6 GM/DL (32-36); Mean Corpuscular Hemoglobin 27 PG (27-34); Mean Corpuscular Volume 82.2 FL (87-102); Monocytes # 0.6 10*3/uL (0.11-0.8); Monocytes % 7.5 % (1.7-12.7); Neutrophils # 5.4 10*3/uL (1.4-7.4); Platelet Count 267 T/CUMM (130-400); Red Blood Count 4.78 MC/CUMM (3.8-5.5); White Blood Count 8.4 T/CUMM (4-12)
[2018-06-03 21:04] LABS: Alanine Aminotransferase 13 U/L (16-61); Albumin 3.6 G/DL (3.4-5.0); Alkaline Phosphatase 80 U/L (45-117); Amylase 306 U/L (25-115); Aspartate Amino Transferase 13 U/L (0-37); Blood Urea Nitrogen 8 MG/DL (7-18); Calcium 8.9 MG/DL (8.5-10.1); Glucose 106 MG/DL (74-106); Osmolality,Calculated 272.7 MOS/KG (273-304); Potassium 3.5 MMOL/L (3.5-5.1); Sodium 138 MMOL/L (136-145); Total Protein 7.1 G/DL (6.4-8.3); Troponin I < 0.015 NG/ML (0.00-0.045)
[2018-06-03 21:28] LABS: Apearance,Urine CLEAR (Clear); Bilirubin,Urine Negative (Negative); Blood, Urine Negative (Negative); Glucose,Urine (UA) Negative (Negative); Ketones,Urine Negative (Negative); Mucus,Urine Occasional /LPF (Occasional); Nitrite,Urine Negative (Negative); Protein,Urine Negative; RBC,Urine <1 /HPF (0-4); Urine Color Straw (Yellow); Urine Specific Gravity 1.009 (1.001-1.035); Urine Urobilinogen < 2.0 EU/DL (0.2-1.0); WBC,Urine 4 /HPF (0-6)
[2018-06-03] MEDS: SODIUM CHLORIDE 0.9% 1,000 ML IV SCH (23:00)
[2018-06-03] MEDS: HYDROmorphone 2 MG/1 ML VIAL IV PRN (23:05)
[2018-06-04] MEDS: HYDROmorphone 2 MG/1 ML VIAL IV PRN ×5 (05:31→21:55)
[2018-06-04] MEDS: ONDANSETRON 4 MG/2 ML VIAL IV PRN ×5 (05:32→21:55)
[2018-06-04 06:12] LABS: Basophils # 0.1 10*3/uL (0.0-0.2); Basophils % 0.9 % (0.0-0.8); Eosinophils # 0.2 10*3/uL (0.0-0.87); Eosinophils % 2.6 % (0.00-10.9); Hematocrit 38.2 VOL% (42.0-52.0); Hemoglobin 12.1 GM/DL (14.0-18.0); Immature Granulocytes % 0.1 %; Immature Granulocytes Absolute 0.01 #; Lymphocytes # 2.8 10*3/uL (1.4-4.0); Lymphocytes % 40.7 % (21.2-54.2); Mean Corpuscular HGB Conc 31.7 GM/DL (32-36); Mean Corpuscular Hemoglobin 28 PG (27-34); Mean Corpuscular Volume 88.6 FL (87-102); Mean Platelet Volume 9.5 FL (9.6-12.0); Monocytes # 0.6 10*3/uL (0.11-0.8); Monocytes % 9.4 % (1.7-12.7); Neutrophils # 3.1 10*3/uL (1.4-7.4); Neutrophils % 46.3 % (38.7-73.9); Platelet Count 163 T/CUMM (130-400); Red Blood Count 4.31 MC/CUMM (3.8-5.5); Red Cell Distribution Width 15.5 % (9.3-17.3); White Blood Count 6.8 T/CUMM (4-12)
[2018-06-04 06:38] LABS: Albumin 3.3 G/DL (3.4-5.0); Calcium 8.6 MG/DL (8.5-10.1); Osmolality,Calculated 278.1 MOS/KG (273-304); Potassium 3.6 MMOL/L (3.5-5.1); Total Protein 6.7 G/DL (6.4-8.3)
[2018-06-04] MEDS: SODIUM CHLORIDE 0.9% 1,000 ML IV SCH ×2 (07:30→15:32)
[2018-06-04] MEDS: ENOXAPARIN 40 MG/0.4 ML SYRINGE SUBCUT SCH (08:07)
[2018-06-04] MEDS ORDERED: PANTOPRAZOLE 40 MG VIAL IV SCH (09:00)
[2018-06-04] MEDS ORDERED: ONDANSETRON ODT 4 MG TABLET PO PRN (14:44)
[2018-06-04] MEDS ORDERED: PROMETHAZINE 25 MG TABLET PO PRN (14:44)
[2018-06-04] MEDS ORDERED: POLYETHYLENE GLYCOL POWDER 17 GM PACK PO PRN (14:44)
[2018-06-04] MEDS ORDERED: HYDROcod/ACETAMIN 7.5-325 MG/15 ML UDCUP PO PRN (17:05)
[2018-06-04] MEDS ORDERED: traMADol 50 MG TABLET PO PRN (17:05)
[2018-06-05] MEDS: SODIUM CHLORIDE 0.9% 1,000 ML IV SCH ×2 (01:15→10:11)
[2018-06-05] MEDS: HYDROmorphone 2 MG/1 ML VIAL IV PRN ×2 (01:26→09:15)
[2018-06-05] MEDS ORDERED: DIAZEPAM 5 MG TABLET PO SCH (09:00)
[2018-06-05] MEDS ORDERED: PANTOPRAZOLE 40 MG TABLET PO SCH (09:00)
[2018-06-05] MEDS: ENOXAPARIN 40 MG/0.4 ML SYRINGE SUBCUT SCH (09:14)
[2018-06-05] MEDS: ONDANSETRON 4 MG/2 ML VIAL IV PRN (09:16)
[2018-06-05 11:40] VITALS: BP 140/81
[2018-06-11] MEDS ORDERED: cloNIDine 0.2 MG/24 HR PATCH TRANSDERM SCH (09:00)
== END 2018-06-05 12:35 | disposition home or self-care (01) | DRG 439 ==
LOC: EDBD → EDUNIT# → N.ED 19:16 → N.EDINP 22:22 → N.5E 22:46
PROVIDERS: ADMIT Family Medicine; ATTEND Family Medicine

== ENCOUNTER 2018-08-12 13:33 | Inpatient (IN) ==
[2018-08-12] MEDS ORDERED: HYDROmorphone 2 MG/1 ML VIAL IV STA ×2 (14:02→15:34)
[2018-08-12] MEDS ORDERED: ONDANSETRON 4 MG/2 ML VIAL IV STA (14:02)
[2018-08-12 14:08] LABS: Basophils # 0.1 10*3/uL (0.0-0.2); Basophils % 0.6 % (0.0-0.8); Eosinophils # 0.2 10*3/uL (0.0-0.87); Eosinophils % 2.6 % (0.00-10.9); Hematocrit 38.3 VOL% (42.0-52.0); Hemoglobin 12.3 GM/DL (14.0-18.0); Immature Granulocytes % 0.2 %; Immature Granulocytes Absolute 0.02 #; Lymphocytes # 2.6 10*3/uL (1.4-4.0); Lymphocytes % 31.9 % (21.2-54.2); Mean Corpuscular HGB Conc 32.1 GM/DL (32-36); Mean Corpuscular Volume 86.1 FL (87-102); Monocytes % 8.1 % (1.7-12.7); Neutrophils % 56.6 % (38.7-73.9); Platelet Count 405 T/CUMM (130-400); Red Blood Count 4.45 MC/CUMM (3.8-5.5); Red Cell Distribution Width 15.6 % (9.3-17.3); White Blood Count 8.2 T/CUMM (4-12)
[2018-08-12 14:21] LABS: Alanine Aminotransferase 11 U/L (16-61); Albumin 3.4 G/DL (3.4-5.0); Alkaline Phosphatase 115 U/L (45-117); Aspartate Amino Transferase 8 U/L (0-37); Bilirubin,Total < 0.39 MG/DL (0.2-1.0); Blood Urea Nitrogen 11 MG/DL (7-18); Calcium 8.6 MG/DL (8.5-10.1); Glucose 123 MG/DL (74-106); Osmolality,Calculated 282.1 MOS/KG (273-304)
[2018-08-12] MEDS: SODIUM CHLORIDE 0.9% 1,000 ML IV STA ×2 (14:21→16:15)
[2018-08-12] MEDS ORDERED: DIAZEPAM 5 MG TABLET PO PRN (15:38)
[2018-08-12] MEDS ORDERED: ONDANSETRON ODT 4 MG TABLET PO PRN (15:38)
[2018-08-12] MEDS ORDERED: GLUCAGON 1 MG VIAL IM PRN (15:52)
[2018-08-12] MEDS ORDERED: DEXTROSE 50% 25 GM/50 ML SYRINGE IV PRN (15:52)
[2018-08-12] MEDS: cefTRIAXone 1,000 MG in SYRINGE 1 EACH IV SCH (17:08)
[2018-08-12] MEDS: LACTATED RINGERS 1,000 ML IV SCH ×2 (17:35→23:51)
[2018-08-12] MEDS: LIPASE PO SCH (18:12)
[2018-08-12] MEDS: PROTEASE PO SCH (18:12)
[2018-08-12] MEDS: AMYLASE PO SCH (18:12)
[2018-08-12] MEDS: INSULIN LISPRO 100 UNIT/ML SUBCUT SCH ×2 (18:13→22:04)
[2018-08-12] MEDS: HYDROmorphone 2 MG/1 ML VIAL IV PRN (20:56)
[2018-08-12] MEDS: ENOXAPARIN 40 MG/0.4 ML SYRINGE SUBCUT SCH (20:57)
[2018-08-13] MEDS: HYDROmorphone 2 MG/1 ML VIAL IV PRN ×5 (01:36→22:19)
[2018-08-13] MEDS: LACTATED RINGERS 1,000 ML IV SCH ×3 (03:40→14:20)
[2018-08-13 05:45] LABS: Basophils % 0.6 % (0.0-0.8); Eosinophils # 0.2 10*3/uL (0.0-0.87); Eosinophils % 3.7 % (0.00-10.9); Hemoglobin 12.1 GM/DL (14.0-18.0); Immature Granulocytes % 0.2 %; Immature Granulocytes Absolute 0.01 #; Lymphocytes % 47.8 % (21.2-54.2); Mean Corpuscular Volume 87.1 FL (87-102); Mean Platelet Volume 9.3 FL (9.6-12.0); Monocytes % 8.9 % (1.7-12.7); Neutrophils % 38.8 % (38.7-73.9); Platelet Count 385 T/CUMM (130-400); Red Blood Count 4.48 MC/CUMM (3.8-5.5); Red Cell Distribution Width 15.2 % (9.3-17.3); White Blood Count 6.3 T/CUMM (4-12)
[2018-08-13 06:05] LABS: Albumin 3.3 G/DL (3.4-5.0); Calcium 8.6 MG/DL (8.5-10.1); Osmolality,Calculated 279.1 MOS/KG (273-304); Total Protein 6.6 G/DL (6.4-8.3)
[2018-08-13] MEDS: ONDANSETRON 4 MG/2 ML VIAL IV PRN (06:13)
[2018-08-13] MEDS: INSULIN LISPRO 100 UNIT/ML SUBCUT SCH ×4 (07:43→22:12)
[2018-08-13] MEDS: LISINOPRIL/HCTZ 20-25 MG TABLET PO SCH (08:47)
[2018-08-13] MEDS: PANTOPRAZOLE 40 MG TABLET PO SCH (08:47)
[2018-08-13] MEDS: PROTEASE PO SCH ×3 (08:49→16:20)
[2018-08-13] MEDS: LIPASE PO SCH ×3 (08:49→16:20)
[2018-08-13] MEDS: AMYLASE PO SCH ×3 (08:49→16:20)
[2018-08-13] MEDS: POLYETHYLENE GLYCOL POWDER 17 GM PACK PO PRN (08:51)
[2018-08-13] MEDS: PROMETHAZINE 25 MG/1 ML VIAL IM PRN ×2 (08:56→21:16)
[2018-08-13 10:02] LABS: Apearance,Urine CLEAR (Clear); Bilirubin,Urine Negative (Negative); Blood, Urine Negative (Negative); Glucose,Urine (UA) Negative (Negative); Ketones,Urine Negative (Negative); Nitrite,Urine Negative (Negative); Protein,Urine Negative; RBC,Urine <1 /HPF (0-4); Urine Color Colorless (Yellow); Urine Specific Gravity 1.006 (1.001-1.035); Urine Urobilinogen < 2.0 EU/DL (0.2-1.0); WBC,Urine 1 /HPF (0-6)
[2018-08-13] MEDS ORDERED: BISACODYL 5 MG TABLET PO ONE (10:30)
[2018-08-13] MEDS: ENOXAPARIN 40 MG/0.4 ML SYRINGE SUBCUT SCH (21:15)
[2018-08-13] MEDS: cefTRIAXone 1,000 MG in SYRINGE 1 EACH IV SCH (22:20)
[2018-08-14] MEDS: LACTATED RINGERS 1,000 ML IV SCH ×5 (00:20→20:45)
[2018-08-14 04:17] LABS: Basophils # 0.1 10*3/uL (0.0-0.2); Basophils % 0.8 % (0.0-0.8); Eosinophils # 0.2 10*3/uL (0.0-0.87); Eosinophils % 3.2 % (0.00-10.9); Hematocrit 37.8 VOL% (42.0-52.0); Hemoglobin 12.1 GM/DL (14.0-18.0); Immature Granulocytes % 0.2 %; Immature Granulocytes Absolute 0.01 #; Lymphocytes % 45.5 % (21.2-54.2); Mean Corpuscular Volume 86.3 FL (87-102); Mean Platelet Volume 9.4 FL (9.6-12.0); Neutrophils % 42.3 % (38.7-73.9); Platelet Count 381 T/CUMM (130-400); Red Blood Count 4.38 MC/CUMM (3.8-5.5); Red Cell Distribution Width 15.2 % (9.3-17.3); White Blood Count 6.6 T/CUMM (4-12)
[2018-08-14 04:56] LABS: Bilirubin,Total 0.7 MG/DL (0.2-1.0); Calcium 8.6 MG/DL (8.5-10.1); Osmolality,Calculated 285.7 MOS/KG (273-304)
[2018-08-14] MEDS: INSULIN LISPRO 100 UNIT/ML SUBCUT SCH (07:34)
[2018-08-14] MEDS: HYDROmorphone 2 MG/1 ML VIAL IV PRN ×4 (08:15→21:22)
[2018-08-14] MEDS: PANTOPRAZOLE 40 MG TABLET PO SCH (08:15)
[2018-08-14] MEDS: LISINOPRIL/HCTZ 20-25 MG TABLET PO SCH (08:15)
[2018-08-14] MEDS: ONDANSETRON 4 MG/2 ML VIAL IV PRN ×3 (08:16→17:09)
[2018-08-14] MEDS: PROTEASE PO SCH ×3 (08:17→17:05)
[2018-08-14] MEDS: AMYLASE PO SCH ×3 (08:17→17:05)
[2018-08-14] MEDS: LIPASE PO SCH ×3 (08:17→17:05)
[2018-08-14] MEDS: ACETAMINOPHEN 325 MG TABLET PO PRN (10:20)
[2018-08-14] MEDS: cefTRIAXone 1,000 MG in SYRINGE 1 EACH IV SCH (21:14)
[2018-08-14] MEDS: ENOXAPARIN 40 MG/0.4 ML SYRINGE SUBCUT SCH (21:51)
[2018-08-15] MEDS: LACTATED RINGERS 1,000 ML IV SCH ×4 (01:39→20:56)
[2018-08-15] MEDS: HYDROmorphone 2 MG/1 ML VIAL IV PRN ×2 (01:58→08:38)
[2018-08-15] MEDS: ONDANSETRON 4 MG/2 ML VIAL IV PRN ×3 (02:05→18:25)
[2018-08-15 04:38] LABS: Basophils # 0.1 10*3/uL (0.0-0.2); Basophils % 0.8 % (0.0-0.8); Eosinophils # 0.3 10*3/uL (0.0-0.87); Hematocrit 38.1 VOL% (42.0-52.0); Hemoglobin 12.2 GM/DL (14.0-18.0); Immature Granulocytes % 0.2 %; Immature Granulocytes Absolute 0.01 #; Lymphocytes % 46.2 % (21.2-54.2); Mean Platelet Volume 9.4 FL (9.6-12.0); Monocytes % 8.1 % (1.7-12.7); Neutrophils % 40.7 % (38.7-73.9); Platelet Count 407 T/CUMM (130-400); Red Blood Count 4.48 MC/CUMM (3.8-5.5); Red Cell Distribution Width 14.8 % (9.3-17.3); White Blood Count 6.5 T/CUMM (4-12)
[2018-08-15 05:01] LABS: Alanine Aminotransferase 11 U/L (16-61); Albumin 3.4 G/DL (3.4-5.0); Alkaline Phosphatase 118 U/L (45-117); Aspartate Amino Transferase 22 U/L (0-37); Bilirubin,Total < 0.39 MG/DL (0.2-1.0); Blood Urea Nitrogen 7 MG/DL (7-18); Calcium 8.4 MG/DL (8.5-10.1); Glucose 123 MG/DL (74-106); Osmolality,Calculated 279.3 MOS/KG (273-304); Total Protein 6.8 G/DL (6.4-8.3)
[2018-08-15] MEDS: PROTEASE PO SCH ×3 (08:36→17:01)
[2018-08-15] MEDS: LIPASE PO SCH ×3 (08:36→17:01)
[2018-08-15] MEDS: AMYLASE PO SCH ×3 (08:36→17:01)
[2018-08-15] MEDS: PANTOPRAZOLE 40 MG TABLET PO SCH (08:40)
[2018-08-15] MEDS: LISINOPRIL/HCTZ 20-25 MG TABLET PO SCH (08:40)
[2018-08-15] MEDS: POLYETHYLENE GLYCOL POWDER 17 GM PACK PO PRN (09:26)
[2018-08-15] MEDS ORDERED: fentaNYL 25 MCG/HR PATCH TRANSDERM SCH (11:30)
[2018-08-15] MEDS: oxyCODONE IR 5 MG TABLET PO PRN ×2 (11:39→18:25)
[2018-08-15] MEDS: PROMETHAZINE 25 MG TABLET PO PRN ×2 (11:39→20:53)
[2018-08-15] MEDS: cephALEXin 500 MG CAPSULE PO SCH (20:53)
[2018-08-15] MEDS: ENOXAPARIN 40 MG/0.4 ML SYRINGE SUBCUT SCH (20:53)
[2018-08-16] MEDS: oxyCODONE IR 5 MG TABLET PO PRN ×3 (00:11→16:08)
[2018-08-16 05:22] LABS: Basophils # 0.1 10*3/uL (0.0-0.2); Basophils % 1.2 % (0.0-0.8); Eosinophils # 0.3 10*3/uL (0.0-0.87); Eosinophils % 4.8 % (0.00-10.9); Hematocrit 39.3 VOL% (42.0-52.0); Hemoglobin 12.6 GM/DL (14.0-18.0); Immature Granulocytes % 0.2 %; Immature Granulocytes Absolute 0.01 #; Lymphocytes # 2.8 10*3/uL (1.4-4.0); Lymphocytes % 48.3 % (21.2-54.2); Mean Corpuscular HGB Conc 32.1 GM/DL (32-36); Mean Corpuscular Volume 86.6 FL (87-102); Mean Platelet Volume 9.1 FL (9.6-12.0); Monocytes % 9.2 % (1.7-12.7); Neutrophils % 36.3 % (38.7-73.9); Platelet Count 409 T/CUMM (130-400); Red Blood Count 4.54 MC/CUMM (3.8-5.5); Red Cell Distribution Width 14.8 % (9.3-17.3); White Blood Count 5.9 T/CUMM (4-12)
[2018-08-16 05:37] LABS: Albumin 3.3 G/DL (3.4-5.0); Bilirubin,Total 0.7 MG/DL (0.2-1.0); Calcium 8.7 MG/DL (8.5-10.1); Osmolality,Calculated 278.3 MOS/KG (273-304); Total Protein 6.9 G/DL (6.4-8.3)
[2018-08-16 05:54] LABS: Band Neutrophils 3 % (0-10); Eosinophils 4 % (0-10); Lymphocytes 42 % (20-55); Metamyelocytes 2 %; Myelocytes 1 %; Platelet Estimate Normal; Segmented Neutrophils 38 % (50-85); Total Cells Counted 100
[2018-08-16 05:55] LABS: Hypochromasia 2+
[2018-08-16] MEDS: LACTATED RINGERS 1,000 ML IV SCH ×2 (06:54→16:10)
[2018-08-16] MEDS: LISINOPRIL 20 MG TABLET PO SCH (08:22)
[2018-08-16] MEDS: cephALEXin 500 MG CAPSULE PO SCH ×2 (08:22→21:22)
[2018-08-16] MEDS: PANTOPRAZOLE 40 MG TABLET PO SCH (08:22)
[2018-08-16] MEDS: LIPASE PO SCH ×3 (08:23→16:59)
[2018-08-16] MEDS: AMYLASE PO SCH ×3 (08:23→16:59)
[2018-08-16] MEDS: PROTEASE PO SCH ×3 (08:23→16:59)
[2018-08-16] MEDS: PROMETHAZINE 25 MG TABLET PO PRN ×3 (08:26→21:21)
[2018-08-16] MEDS: ENOXAPARIN 40 MG/0.4 ML SYRINGE SUBCUT SCH (21:21)
[2018-08-17] MEDS: oxyCODONE IR 5 MG TABLET PO PRN ×2 (00:31→08:15)
[2018-08-17] MEDS: LACTATED RINGERS 1,000 ML IV SCH ×2 (01:35→14:26)
[2018-08-17] MEDS: ACETAMINOPHEN 325 MG TABLET PO PRN (01:36)
[2018-08-17 05:33] LABS: Basophils % 0.7 % (0.0-0.8); Eosinophils # 0.3 10*3/uL (0.0-0.87); Eosinophils % 5.4 % (0.00-10.9); Hematocrit 39.3 VOL% (42.0-52.0); Hemoglobin 12.4 GM/DL (14.0-18.0); Immature Granulocytes % 0.4 %; Immature Granulocytes Absolute 0.02 #; Lymphocytes # 2.7 10*3/uL (1.4-4.0); Lymphocytes % 48.2 % (21.2-54.2); Mean Corpuscular HGB Conc 31.6 GM/DL (32-36); Mean Corpuscular Volume 86.4 FL (87-102); Mean Platelet Volume 9.5 FL (9.6-12.0); Monocytes % 9.1 % (1.7-12.7); Neutrophils % 36.2 % (38.7-73.9); Platelet Count 391 T/CUMM (130-400); Red Blood Count 4.55 MC/CUMM (3.8-5.5); Red Cell Distribution Width 14.8 % (9.3-17.3); White Blood Count 5.7 T/CUMM (4-12)
[2018-08-17 05:56] LABS: Calcium 8.9 MG/DL (8.5-10.1); Osmolality,Calculated 280.3 MOS/KG (273-304)
[2018-08-17] MEDS: PROMETHAZINE 25 MG TABLET PO PRN (06:38)
[2018-08-17 06:40] LABS: Anisocytosis Slight; Eosinophils 5 % (0-10); Lymphocytes 38 % (20-55); Microcytosis 1+; Segmented Neutrophils 48 % (50-85); Total Cells Counted 100
[2018-08-17 06:41] LABS: Platelet Estimate Normal
[2018-08-17] MEDS: PROTEASE PO SCH ×2 (08:08→12:02)
[2018-08-17] MEDS: LIPASE PO SCH ×2 (08:08→12:02)
[2018-08-17] MEDS: PANTOPRAZOLE 40 MG TABLET PO SCH (08:08)
[2018-08-17] MEDS: cephALEXin 500 MG CAPSULE PO SCH (08:08)
[2018-08-17] MEDS: LISINOPRIL 20 MG TABLET PO SCH (08:08)
[2018-08-17] MEDS: AMYLASE PO SCH ×2 (08:08→12:02)
[2018-08-17] MEDS ORDERED: amLODIPine 5 MG TABLET PO SCH (09:00)
[2018-08-17] MEDS ORDERED: fentaNYL 25 MCG/HR PATCH TRANSDERM ONE (09:00)
[2018-08-17 12:05] VITALS: BP 148/98
== END 2018-08-17 13:30 | disposition home or self-care (01) | DRG 439 ==
LOC: EDBD → EDUNIT# → N.EDINP 13:33 → N.ED 13:33 → N.2E 16:07
PROVIDERS: ADMIT Internal Medicine; ATTEND Internal Medicine

== ENCOUNTER 2018-09-03 18:31 | Inpatient (IN) ==
[2018-09-03] MEDS ORDERED: ONDANSETRON 4 MG/2 ML VIAL IV STA (19:41)
[2018-09-03] MEDS ORDERED: MORPHINE 4 MG/1 ML VIAL IV STA (19:41)
[2018-09-03] MEDS ORDERED: SODIUM CHLORIDE 0.9% 1,000 ML IV STA (19:41)
[2018-09-03 19:53] LABS: Basophils # 0.1 10*3/uL (0.0-0.2); Basophils % 0.6 % (0.0-0.8); Eosinophils # 0.1 10*3/uL (0.0-0.87); Eosinophils % 0.5 % (0.00-10.9); Hematocrit 42.8 VOL% (42.0-52.0); Immature Granulocytes % 0.5 %; Immature Granulocytes Absolute 0.06 #; Lymphocytes # 2.4 10*3/uL (1.4-4.0); Lymphocytes % 21.2 % (21.2-54.2); Mean Corpuscular HGB Conc 32.7 GM/DL (32-36); Mean Corpuscular Volume 83.9 FL (87-102); Mean Platelet Volume 9.3 FL (9.6-12.0); Monocytes % 6.2 % (1.7-12.7); Platelet Count 267 T/CUMM (130-400); White Blood Count 11.3 T/CUMM (4-12)
[2018-09-03 20:00] LABS: Albumin 4.3 G/DL (3.4-5.0); Bilirubin,Total 0.4 MG/DL (0.2-1.0); Calcium 9.4 MG/DL (8.5-10.1); Osmolality,Calculated 277.5 MOS/KG (273-304)
[2018-09-03] MEDS ORDERED: HYDROmorphone 2 MG/1 ML VIAL IV STA (21:03)
[2018-09-03] MEDS ORDERED: diphenhydrAMINE CAP 25 MG CAPSULE PO PRN (21:52)
[2018-09-03] MEDS ORDERED: cloNIDine 0.1 MG TABLET PO STA (21:52)
[2018-09-03] MEDS ORDERED: ACETAMINOPHEN 325 MG TABLET PO PRN (21:52)
[2018-09-03] MEDS ORDERED: PROMETHAZINE 25 MG/1 ML VIAL IM PRN (21:52)
[2018-09-03] MEDS ORDERED: NICOTINE 21 MG/24 HR PATCH TRANSDERM PRN (21:52)
[2018-09-03] MEDS ORDERED: [UNRECOGNIZED DRUG - OTHER] PO PRN (21:59)
[2018-09-03] MEDS ORDERED: DIAZEPAM 5 MG TABLET PO PRN (21:59)
[2018-09-03] MEDS ORDERED: POLYETHYLENE GLYCOL POWDER 17 GM PACK PO PRN (21:59)
[2018-09-03] MEDS ORDERED: HYDROmorphone 2 MG/1 ML VIAL IV ONE (23:36)
[2018-09-03] MEDS ORDERED: cloNIDine 0.1 MG TABLET PO ONE (23:38)
[2018-09-03] MEDS: SODIUM CHLORIDE 0.9% 1,000 ML IV SCH (23:50)
[2018-09-04] MEDS: HYDROmorphone 2 MG/1 ML VIAL IV PRN ×6 (03:05→20:10)
[2018-09-04] MEDS: ONDANSETRON 4 MG/2 ML VIAL IV PRN ×3 (06:19→20:16)
[2018-09-04 06:23] LABS: Albumin 3.7 G/DL (3.4-5.0); Calcium 8.8 MG/DL (8.5-10.1); Osmolality,Calculated 273.7 MOS/KG (273-304); Total Protein 6.9 G/DL (6.4-8.3)
[2018-09-04] MEDS: SODIUM CHLORIDE 0.9% 1,000 ML IV SCH ×2 (07:52→14:58)
[2018-09-04] MEDS: LISINOPRIL 20 MG TABLET PO SCH (09:29)
[2018-09-04] MEDS: PANTOPRAZOLE 40 MG VIAL IV SCH ×2 (09:34→20:07)
[2018-09-04] MEDS: amLODIPine 5 MG TABLET PO SCH ×2 (09:34→14:11)
[2018-09-04] MEDS: oxyCODONE IR 5 MG TABLET PO PRN (13:53)
[2018-09-04] MEDS ORDERED: cloNIDine 0.1 MG TABLET PO ONE (21:09)
[2018-09-05] MEDS: SODIUM CHLORIDE 0.9% 1,000 ML IV SCH ×3 (00:23→15:37)
[2018-09-05] MEDS: ONDANSETRON 4 MG/2 ML VIAL IV PRN ×3 (02:07→15:16)
[2018-09-05] MEDS: HYDROmorphone 2 MG/1 ML VIAL IV PRN ×4 (02:08→15:35)
[2018-09-05] MEDS: oxyCODONE IR 5 MG TABLET PO PRN ×2 (07:03→14:11)
[2018-09-05] MEDS: LISINOPRIL 20 MG TABLET PO SCH (08:08)
[2018-09-05] MEDS: PANTOPRAZOLE 40 MG VIAL IV SCH (08:09)
[2018-09-05] MEDS: amLODIPine 5 MG TABLET PO SCH (08:10)
[2018-09-05 16:09] VITALS: BP 136/93
[2018-09-05] MEDS ORDERED: fentaNYL 25 MCG/HR PATCH TRANSDERM SCH (18:00)
== END 2018-09-05 17:56 | disposition home or self-care (01) | DRG 439 ==
LOC: EDUNIT# → EDBD → N.EDINP 18:31 → N.ED 18:31 → OBSVTOIN 21:52 → N.4E 22:08
PROVIDERS: ADMIT Hospitalist; ATTEND Hospitalist

== ENCOUNTER 2020-02-13 05:33 | Inpatient (IN) ==
[2020-02-10 11:47] LABS: Basophils # 0.1 10*3/uL (0.0-0.2); Basophils % 0.8 % (0.0-0.8); Eosinophils # 0.1 10*3/uL (0.0-0.87); Eosinophils % 1.4 % (0.00-10.9); Hematocrit 49.9 VOL% (42.0-52.0); Hemoglobin 16.7 GM/DL (14.0-18.0); Immature Granulocytes % 0.3 %; Immature Granulocytes Absolute 0.02 #; Lymphocytes # 2.2 10*3/uL (1.4-4.0); Lymphocytes % 27.6 % (21.2-54.2); Mean Corpuscular HGB Conc 33.5 GM/DL (32-36); Mean Corpuscular Volume 85.3 FL (87-102); Mean Platelet Volume 10.3 FL (9.6-12.0); Monocytes % 8.2 % (1.7-12.7); Neutrophils % 61.7 % (38.7-73.9); Platelet Count 260 T/CUMM (130-400); Red Blood Count 5.85 MC/CUMM (3.8-5.5); Red Cell Distribution Width 13.8 % (9.3-17.3); White Blood Count 7.9 T/CUMM (4-12)
[2020-02-10 12:21] LABS: Albumin 4.3 G/DL (3.4-5.0); Bilirubin,Total 0.7 MG/DL (0.2-1.0); Calcium 9.7 MG/DL (8.5-10.1); Osmolality,Calculated 275.1 MOS/KG (273-304)
[2020-02-13] MEDS ORDERED: DIAZEPAM 5 MG TABLET PO ONE (06:21)
[2020-02-13] MEDS ORDERED: FAMOTIDINE 20 MG TABLET PO ONE (06:22)
[2020-02-13] MEDS ORDERED: LACTATED RINGERS 1,000 ML IV SCH (06:30)
[2020-02-13] MEDS ORDERED: ceFAZolin 1,000 MG in SYRINGE 1 EACH IV ONE (06:30)
[2020-02-13] MEDS ORDERED: BUPIVACAINE MPF 0.25% 30 ML VIAL ONE (07:35)
[2020-02-13] MEDS ORDERED: LIDOCAINE 1%/EPI INJ 20 ML VIAL ONE (07:36)
[2020-02-13] MEDS ORDERED: ALBUMIN 5% 12.5 GM/250 ML VIAL IV ONE (09:32)
[2020-02-13] MEDS ORDERED: TISSUE ADHESIVE 1 EACH APPLICATOR TOP ONE (10:47)
[2020-02-13] MEDS ORDERED: MORPHINE 4 MG/1 ML VIAL IV PRN (11:10)
[2020-02-13] MEDS ORDERED: propofoL 200 MG/20 ML VIAL IV ONE (11:11)
[2020-02-13] MEDS ORDERED: fentaNYL 250 MCG/5 ML VIAL ONE (11:11)
[2020-02-13] MEDS ORDERED: SEVOFLURANE 1 UNIT/15 MINUTE INH ONE (11:11)
[2020-02-13] MEDS ORDERED: LIDOCAINE 2% 5 ML VIAL ONE (11:11)
[2020-02-13] MEDS ORDERED: MIDAZOLAM 2 MG/2 ML VIAL ONE (11:12)
[2020-02-13] MEDS ORDERED: ePHEDrine 50 MG/ML VIAL ONE (11:12)
[2020-02-13] MEDS ORDERED: ONDANSETRON 4 MG/2 ML VIAL ONE (11:12)
[2020-02-13] MEDS ORDERED: fentaNYL 100 MCG/2 ML VIAL ONE ×2 (11:12)
[2020-02-13] MEDS ORDERED: PHENYLEPHRINE DRIP 20 MG/250 ML PREMIX IV ONE (11:13)
[2020-02-13] MEDS ORDERED: ACETAMINOPHEN 1,000 MG/100 ML VIAL IV ONE (11:13)
[2020-02-13] MEDS ORDERED: LACTATED RINGERS 2,000 ML IV ONE (11:13)
[2020-02-13] MEDS ORDERED: PHENYLEPHRINE 1 MG/10 ML SYRINGE IV ONE (11:13)
[2020-02-13] MEDS ORDERED: SUCCINYLCHOLINE 200 MG/10 ML VIAL ONE (11:13)
[2020-02-13] MEDS ORDERED: ROCURONIUM 100 MG/10 ML VIAL IV ONE (11:13)
[2020-02-13] MEDS ORDERED: GLUCAGON 1 MG VIAL IM PRN (11:18)
[2020-02-13] MEDS ORDERED: DEXTROSE 50% 25 GM/50 ML VIAL IV PRN (11:18)
[2020-02-13 11:58] LABS: Hematocrit 49.3 VOL% (42.0-52.0); Hemoglobin 15.5 GM/DL (14.0-18.0)
[2020-02-13] MEDS: MORPHINE 4 MG/1 ML VIAL IV PRN ×2 (13:04→16:42)
[2020-02-13] MEDS: ONDANSETRON 4 MG/2 ML VIAL IV PRN ×2 (13:05→16:42)
[2020-02-13] MEDS: INSULIN REGULAR 100 UNIT/ML SUBCUT SCH ×3 (16:03→21:55)
[2020-02-13] MEDS: cefOXitin 2,000 MG in SYRINGE 1 EACH IV SCH ×2 (16:41→21:39)
[2020-02-13] MEDS ORDERED: fentaNYL 25 MCG/HR PATCH TRANSDERM SCH (17:00)
[2020-02-13] MEDS ORDERED: NALOXONE 0.4 MG/ML VIAL IV PRN (17:47)
[2020-02-13] MEDS ORDERED: HYDROmorphone PCA 30 MG/30 ML SYRINGE IV SCH (18:00)
[2020-02-13 19:23] LABS: Hematocrit 46.1 VOL% (42.0-52.0); Hemoglobin 15.3 GM/DL (14.0-18.0)
[2020-02-14] MEDS: DEXTROSE 5% LACTATED RINGERS 1,000 ML IV SCH ×4 (03:08→21:29)
[2020-02-14] MEDS: cefOXitin 2,000 MG in SYRINGE 1 EACH IV SCH (03:10)
[2020-02-14] MEDS: ONDANSETRON 4 MG/2 ML VIAL IV PRN ×2 (03:15→10:00)
[2020-02-14 04:03] LABS: Basophils % 0.5 % (0.0-0.8); Eosinophils # 0.1 10*3/uL (0.0-0.87); Eosinophils % 0.6 % (0.00-10.9); Hematocrit 45.1 VOL% (42.0-52.0); Hemoglobin 14.9 GM/DL (14.0-18.0); Immature Granulocytes % 0.5 %; Immature Granulocytes Absolute 0.04 #; Lymphocytes # 1.5 10*3/uL (1.4-4.0); Lymphocytes % 18.7 % (21.2-54.2); Mean Corpuscular Volume 86.7 FL (87-102); Mean Platelet Volume 9.9 FL (9.6-12.0); Monocytes % 9.9 % (1.7-12.7); Neutrophils % 69.8 % (38.7-73.9); Platelet Count 185 T/CUMM (130-400); Red Cell Distribution Width 13.9 % (9.3-17.3); White Blood Count 7.7 T/CUMM (4-12)
[2020-02-14 04:35] LABS: Calcium 8.5 MG/DL (8.5-10.1); Osmolality,Calculated 273.1 MOS/KG (273-304)
[2020-02-14] MEDS ORDERED: SODIUM CHLORIDE 0.9% 500 ML IV ONE (07:15)
[2020-02-14] MEDS ORDERED: PANTOPRAZOLE 40 MG VIAL IV SCH (09:00)
[2020-02-14] MEDS ORDERED: LISINOPRIL/HCTZ 20-25 MG TABLET PO SCH (09:00)
[2020-02-14] MEDS: INSULIN REGULAR 100 UNIT/ML SUBCUT SCH ×4 (09:27→21:57)
[2020-02-14 14:42] LABS: Calcium 8.4 MG/DL (8.5-10.1); Osmolality,Calculated 271.2 MOS/KG (273-304)
[2020-02-14] MEDS ORDERED: DIAZEPAM 5 MG TABLET PO PRN (15:16)
[2020-02-14] MEDS ORDERED: fentaNYL 25 MCG/HR PATCH TRANSDERM SCH (15:30)
[2020-02-14] MEDS: oxyCODONE IR 5 MG TABLET PO SCH ×2 (19:20→22:02)
[2020-02-14] MEDS: busPIRone 15 MG TABLET PO SCH (21:52)
[2020-02-14] MEDS: PANTOPRAZOLE 40 MG TABLET PO SCH (21:52)
[2020-02-15] MEDS: HYDROmorphone 2 MG/1 ML VIAL IV PRN ×6 (01:58→21:19)
[2020-02-15] MEDS: oxyCODONE IR 5 MG TABLET PO SCH ×6 (01:58→21:20)
[2020-02-15] MEDS: DEXTROSE 5% LACTATED RINGERS 1,000 ML IV SCH ×2 (04:52→12:05)
[2020-02-15] MEDS: ONDANSETRON 4 MG/2 ML VIAL IV PRN ×3 (04:52→17:25)
[2020-02-15 05:21] LABS: Calcium 8.7 MG/DL (8.5-10.1); Osmolality,Calculated 267.2 MOS/KG (273-304)
[2020-02-15] MEDS: INSULIN REGULAR 100 UNIT/ML SUBCUT SCH ×4 (08:20→20:56)
[2020-02-15] MEDS: busPIRone 15 MG TABLET PO SCH ×2 (11:31→21:19)
[2020-02-15] MEDS: [UNRECOGNIZED DRUG - OTHER] PO SCH (11:31)
[2020-02-15] MEDS: PANTOPRAZOLE 40 MG TABLET PO SCH ×2 (11:32→21:20)
[2020-02-16] MEDS: HYDROmorphone 2 MG/1 ML VIAL IV PRN ×5 (00:24→20:55)
[2020-02-16] MEDS: oxyCODONE IR 5 MG TABLET PO SCH ×6 (02:04→22:04)
[2020-02-16] MEDS: ONDANSETRON 4 MG/2 ML VIAL IV PRN ×5 (02:04→20:54)
[2020-02-16] MEDS: busPIRone 15 MG TABLET PO SCH ×2 (09:50→20:53)
[2020-02-16] MEDS: DEXTROSE 5% LACTATED RINGERS 1,000 ML IV SCH (09:50)
[2020-02-16] MEDS: PANTOPRAZOLE 40 MG TABLET PO SCH ×2 (09:50→20:53)
[2020-02-16] MEDS: INSULIN REGULAR 100 UNIT/ML SUBCUT SCH ×4 (09:51→22:39)
[2020-02-16] MEDS: [UNRECOGNIZED DRUG - OTHER] PO SCH (09:53)
[2020-02-16] MEDS ORDERED: fentaNYL 25 MCG/HR PATCH TRANSDERM SCH (20:00)
[2020-02-17] MEDS: oxyCODONE IR 5 MG TABLET PO SCH ×3 (02:44→10:53)
[2020-02-17] MEDS: ONDANSETRON 4 MG/2 ML VIAL IV PRN (03:33)
[2020-02-17] MEDS: HYDROmorphone 2 MG/1 ML VIAL IV PRN (04:30)
[2020-02-17] MEDS: DEXTROSE 5% LACTATED RINGERS 1,000 ML IV SCH (04:57)
[2020-02-17] MEDS: INSULIN REGULAR 100 UNIT/ML SUBCUT SCH ×2 (07:36→11:30)
[2020-02-17] MEDS: busPIRone 15 MG TABLET PO SCH (09:37)
[2020-02-17] MEDS: [UNRECOGNIZED DRUG - OTHER] PO SCH (09:38)
[2020-02-17] MEDS: PANTOPRAZOLE 40 MG TABLET PO SCH (09:38)
[2020-02-17 12:00] VITALS: BP 154/106
== END 2020-02-17 12:25 | disposition home or self-care (01) | DRG 328 ==
LOC: N.OR 05:33 → N.SDSINP 05:37 → N.3E 11:10
PROVIDERS: ADMIT Surgery; ATTEND Surgery